=== PATIENT | male | born 1980 | race Caucasian/White ===

== ENCOUNTER → 2019-06-22 10:56 | Outpatient (CLI) | payer OTHER, SELFPAY ==
--- NOTE | ~2019-06-22 | CT_ITS ---
EXAMINATION: CT abdomen pelvis w con EXAM DATE: 06/22/2019 11:25 INDICATION: Unspecified abdominal pain. TECHNIQUE: Spiral CT of the abdomen and pelvis was performed following intravenous injection of 100 m L Omnipaque 350. Axial, coronal and sagittal images were reviewed. The dose-length product (DLP) fo r this examination was 1325.82 mGy-cm. The exposure was tailored according to patient size (auto mA exposure control), and iterative reconstruction (ASIR) was used as additional dose reduction techniqu e. Comparison is made to prior examination from 02/27/2015. FINDINGS: There is hepatic steatosis without suspicious focal lesion identified. Spleen, adrenal glan ds, pancreas are unremarkable. There are cholecystectomy clips. Portal and splenic veins are patent . Kidneys enhance symmetrically. There is no hydronephrosis. The prostate is unremarkable. The b ladder is unremarkable. There is no retroperitoneal or pelvic lymphadenopathy. There are multiple bilateral infraumbilical anterior abdominal wall fat-containing hernias. The appendix is normal. The stomach and small bowel are unremarkable. There is expected amount of c olonic stool. No free intraperitoneal gas. The heart is normal in size. There are no pericardial or pleural effusions. The lung bases are unremarkable. There are no osteoblastic or osteolytic les ions identified. IMPRESSION: 1. Multiple bilateral lower abdominal wall hernias. 2. Hepatic steatosis. Reviewed, dictated and finalized at location A. HOUSE ATTENDANT
== END ==
PROVIDERS: PCP Family Medicine; Visit Provider Nurse Practitioner Family
DX: K76.0 Fatty (change of) liver, not elsewhere classified (principal); K44.9 Diaphragmatic hernia without obstruction or gangrene
CPT/HCPCS: 74177; Q9967

== ENCOUNTER 2020-02-17 10:04 | Outpatient (CLI) | payer OTHER, SELFPAY ==
[2020-02-17 10:40] LABS: Hematocrit 53.9 % (42.0-52.0); Mean Corpuscular HGB Conc 33.4 g/dl (32-36); Mean Corpuscular Hemoglobin 33.6 pg (26-34); Mean Corpuscular Volume 100.7 fl (80-100); Mean Platelet Volume 11.4 fl (7.4-10.4); Platelet Count Result 250 k/mm3 (150-375); Red Blood Count 5.35 M/mm3 (4.6-6.20); Red Cell Distribution Width 13.1 % (11.5-14.5); White Blood Count 8.8 K/mm3 (4.5-10.0)
[2020-02-17 10:55] LABS: Alanine Aminotransferase 52 U/L (4-50); Albumin Level 4.9 g/dL (3.5-5.1); Alkaline Phosphatase 56 U/L (38-126); Amylase 60 U/L (30-110); Anion Gap 11 mmol/L (8-16); Aspartate Amino Transferase 38 U/L (17-59); Bilirubin,Total 2.4 mg/dL (0.2-1.3); Blood Urea Nitrogen 11 mg/dL (9-20); Calcium 9.8 mg/dL (8.4-10.2); Carbon Dioxide 29 mmol/L (22-30); Chloride 103 mmol/L (98-107); Cholesterol 202 mg/dL (0-200); Estimated Glomerular Filt Rate > 60; Glucose 97 mg/dL (75-110); HDL Direct 49 mg/dL; Lipase 144 U/L (23-300); Potassium 4.5 mmol/L (3.4-5.0); Sodium 143 mmol/L (137-145); Triglycerides 173 mg/dL (<150)
[2020-02-17 11:10] LABS: LDL Cholesterol Direct 112 mg/dL
== END 2020-02-17 10:05 | disposition home or self-care (01) ==
PROVIDERS: PCP Family Medicine; Visit Provider Nurse Practitioner Family
DX: R10.9 Unspecified abdominal pain (principal); Z13.29 Encounter for screening for other suspected endocrine disorder; Z12.5 Encounter for screening for malignant neoplasm of prostate
CPT/HCPCS: 36415; 80053; 80061; 82150; 83690; 84443; 85027

== ENCOUNTER 2023-04-12 07:38 | Outpatient (CLI) | payer OTHER, SELFPAY ==
--- NOTE | ~2023-04-12 | MR_ITS ---
EXAMINATION: MR knee LT wo con DATE: 04/12/2023 08:18 INDICATION: anterior left knee pain x1yr, no trauma, skin ca x1yr TECHNIQUE: Magnetic resonance imaging (MRI) of the left knee was performed without intravenous contra st. Sequences included axial PD-weighted FS FSE, coronal PD-weighted FSE and PD-weighted FS FSE, sagi ttal PD-weighted FSE, and sagittal T2-weighted FS FSE. COMPARISON: X-ray left knee 10/14/2022, images only FINDINGS: Medial compartment: Meniscus intact. Mild diffuse cartilage thinning. Lateral compartment: Meniscus intact. Mild diffuse cartilage thinning. Patellofemoral compartment: Retinacula intact. Mild diffuse cartilage thinning. Ligaments and tendons: The ACL, PCL, MCL, and LCL are intact. Remaining flexor and extensor tendons are intact. Fluid: No significant fluid collection. Osseous/other: No suspicious focal or diffuse marrow signal. IMPRESSION: Mild tricompartmental cartilage thinning, otherwise normal MR knee findings. Reviewed, dictated and finalized at location K. UT MAN
== END 2023-04-12 07:39 ==
LOC: MICIMG 07:39
PROVIDERS: PCP Orthopaedic Surgery; Visit Provider Orthopaedic Surgery
DX: M25.562 Pain in left knee (principal)
CPT/HCPCS: 73721

== ENCOUNTER 2023-07-03 12:41 | Outpatient (CLI) | payer OTHER, SELFPAY ==
--- NOTE | ~2023-07-03 | US_ITS ---
EXAMINATION: US right upper quadrant DATE: 07/03/2023 13:55 INDICATION: Unspecified abdominal pain. TECHNIQUE: Multiple grayscale and Doppler ultrasound images of the abdomen were obtained. COMPARISON: CT abdomen and pelvis 06/22/2019 FINDINGS: The visualized portions of the head, body, and tail of the pancreas are normal. There is di ffuse hepatic steatosis. There is normal flow in main portal vein. The gallbladder is absent. The com mon duct is normal and measures 3 mm. IMPRESSION: 1. Diffuse hepatic steatosis. Reviewed, dictated and finalized at location A. R FABRICATOR OPERATOR
--- NOTE | ~2023-07-03 | XR_ITS ---
Clinical Indication: Chest pain PA and lateral views of the chest: Comparison: None Findings: The lungs are clear, without evidence of focal consolidation or pleural effusion. Cardiome diastinal silhouette is within normal limits. Bones and soft tissues are unremarkable. Impression: Normal chest. Reviewed, dictated and finalized at location . TY DEPOSIT CLERK Impression: Normal chest.
== END 2023-07-03 12:42 | disposition home or self-care (01) ==
PROVIDERS: PCP Family Medicine; Visit Provider Physician Assistant
DX: R06.00 Dyspnea, unspecified (principal); R07.89 Other chest pain; E80.6 Other disorders of bilirubin metabolism; R10.9 Unspecified abdominal pain; K76.0 Fatty (change of) liver, not elsewhere classified
CPT/HCPCS: 71046; 76705

== ENCOUNTER 2024-04-15 13:30 | Outpatient (CLI) | payer OTHER, SELFPAY ==
[2024-04-15 14:02] LABS: Basophils Percent Auto 0.5 % (0.2-1.2); Eosinophils Absolute Auto 0.1 K/mm3 (0-0.3); Hematocrit 52.5 % (42.0-52.0); Hemoglobin 17.5 g/dL (14.0-18.0); Immature Granulocyte Absolute 0.07 K/mm3 (0.00-0.031); Lymphocytes Absolute Auto 1.64 K/mm3 (0.9-3.2); Lymphocytes Percent Auto 22.4 % (18.3-44.2); Mean Corpuscular HGB Conc 33.3 g/dl (32-36); Mean Corpuscular Hemoglobin 32.6 pg (26-34); Mean Corpuscular Volume 97.9 fl (80-100); Mean Platelet Volume 11.5 fl (7.4-10.4); Monocytes Absolute Auto 0.6 K/mm3 (0.1-0.6); Monocytes Percent Auto 7.8 % (2.6-8.5); Neutrophils Absolute Auto 4.9 K/mm3 (1.3-6.7); Neutrophils Percent Auto 67.3 % (45.5-73.1); Platelet Count Result 236 k/mm3 (150-375); Red Blood Count 5.36 M/mm3 (4.6-6.20); Red Cell Distribution Width 12.7 % (11.5-14.5); White Blood Count 7.3 K/mm3 (4.5-10.0)
== END 2024-04-15 13:31 | disposition home or self-care (01) ==
PROVIDERS: PCP Family Medicine
DX: R10.9 Unspecified abdominal pain (principal)
CPT/HCPCS: 36415; 80053; 85025

== ENCOUNTER 2024-04-16 09:20 | Outpatient (CLI) | payer OTHER, SELFPAY ==
--- NOTE | ~2024-04-16 | CT_ITS ---
EXAMINATION: CT abdomen pelvis w con DATE: 04/16/2024 09:58 INDICATION: Acute abdominal pain TECHNIQUE: Computed tomography (CT) of the abdomen and pelvis was performed with 100 mL Omnipaque-350 intravenous contrast. Automated exposure control and iterative reconstruction technique were employe d. The dose-length product was 1036.35 mGy-cm. COMPARISON: 06/22/2019 FINDINGS: Unchanged 4 mm right middle lobe nodule consistent with old granulomatous disease. Heart size is norm al. No pericardial or pleural effusion. Cholecystectomy clips the gallbladder fossa. Small region of focal hepatic steatosis along the gallbladder fossa. Spleen, pancreas, bilateral adrenal glands and k idneys are normal. Distal small bowel diverticula without adjacent from trace stranding to suggest di verticulitis. Bowels including the appendix are otherwise normal. Ventral diastases and likely prior ventral hernia repair. Bladder is normal. Small fat-containing left inguinal hernia. No free intraper itoneal gas or fluid. No pathologically enlarged abdominal or pelvic lymphadenopathy. Mild thoracic a nd lumbar spondylosis. Mild to moderate bilateral hip osteoarthritis. IMPRESSION: 1. No acute intra-abdominal/pelvic process. Reviewed, dictated and finalized at location A. E SETTER
[2024-04-16 09:50] LABS: Estimated Glomerular Filt Rate > 60
== END 2024-04-16 09:21 | disposition home or self-care (01) ==
PROVIDERS: PCP Family Medicine
DX: R10.9 Unspecified abdominal pain (principal); M47.894 Other spondylosis, thoracic region; M47.896 Other spondylosis, lumbar region; M16.0 Bilateral primary osteoarthritis of hip
CPT/HCPCS: 74177; Q9967

== ENCOUNTER 2024-07-15 14:12 | Emergency (ER) | payer OTHER, SELFPAY ==
[2024-07-15 14:15] VITALS: BP 120/81; PULSE 96; RESP 16; TEMP 36.5; O2SAT 99
--- OUTSIDE RECORDS SUMMARY | 2024-07-15 16:02 | XMS_ITS | Clinical Summary ---
Author Organization [facility] Address [address] [address] Phone Care Team Providers Care Production Mechanic Tin Cans Name Role Phone Montrell Garcia MD Primary Care Provider [phone] Allergies No known active allergies Medications No known medications Active Problems No known active problems Social History Tobacco Use Types Packs/Day Years Used Date Smoking Tobacco: Never Smokeless Tobacco: Never Tobacco Cessation:Counseling Given: Not Answered Alcohol Use Standard Drinks/Week Comments Not Currently 0 (1 standard drink = 0.6 oz pur e alcohol) Sexually Active Control Partners Comments Not Currently Sex and Gender Information Value Date Recorded Sex Assigned at Not on file Legal Sex Male 7:55 AM LANGUAGE ASST Gender Identity Not on file Sexual Orientation Not on file Last Filed Vital Signs Vital Sign Reading Time Taken Comments Blood Pressure 118/76 02/26/2023 5:42 PM CDT Pulse 75 02/26/2023 5:42 PM CDT Temperature 36.7 C (98.1 F) 02/26/2023 5:42 PM CDT Respiratory Rate 16 02/26/2023 5:42 PM CDT Oxygen Saturation 99% 02/26/2023 5:42 PM CDT Inhaled Oxygen Concentration - - Weight - - Height - - Body Mass Index - - Plan of Treatment Health Maintenance Due Date Last Done Comments Hepatitis C Virus (HCV) Screening 1979 Hepatitis B Immunization (1 of 3 - 19+ 3-dose series) 1998 Influenza Immunization (#1) 2024 SARS-COV-2 Immunization ( season) 2024 03/17/2021, 02/24/2021 Colonoscopy 2024 Colorectal Cancer Screening 2024 Respiratory Syncytial Virus (RSV) Immunization (Adult) (1 - 1-dose 75+ series) 2054 DTaP/Tdap/Td Immunization Discontinued 09/03/2011 TdaP Immunization Completed 09/03/2011 Meningococcal Immunization (ACWY) Aged Out No longer eligible based on patient's age to complete this topic Pneumococcal Immunization Combined Aged Out No longer eligible based on patient's age to complete this topic Rotavirus Immunization Aged Out No lo nger eligible based on patient's age to complete this topic Insurance [facility] Care Teams Production Mechanic Tin Cans Relationship Specialty Start Date End Date Montrell Garcia MD [address] [place], [place] [id number] PCP - General Family Medicine 02/26/23
--- OUTSIDE RECORDS SUMMARY | 2024-07-15 16:02 | XMS_ITS | Encounter Summary ---
Author Organization [facility] Address [address] [place] [address] Care Team Providers Care Tar Distillation Supervisor Name Role Phone Jose Juan Thornton MD Unavailable [phone] Jose Read MD Unavailable Montrell Garcia MD Primary Care Provider [phone] Encounter Details Date Type Department Care Team (Late st Contact Info) Description 07/12/2020 Telephone [facility] [address] [place] [address] Olayinka Razo MD [address] [id number] Social History Tobacco Use Types Packs/Day Years Used Date Smoking Tobacco: Never Smokeless Tobacco: Never Alcohol Use Standard Drinks/Week Comments No 0 (1 standard drink = 0.6 oz pur e alcohol) Sex and Gender Information Value Date Recorded Sex Assigned at Not on file Gender Identity Not on file Sexual Orientation Not on file documented as of this encounter Functional Status Functional Status Response Date of Assess ment Is person deaf or have serious hearing difficult y? No 08/01/2015 Is person blind or have serious difficulty seein g? No 08/01/2015 Does person have serious dif ficulty walking/climbing stairs? No 08/01/2015 Does person have difficulty dressing/bathing? No 08/01/2015 Does person have difficulty doing errands alone? No 08/01/2015 Cognitive Status Response Date of Assessm ent Does person have difficulty concentrating/remembering/making decisions? No 08/01/2015 documented as of this encounter Plan of Treatment Not on file documented as of this encounter Goals Goal Patient Goal Type Associated Problems Recent Progress Patient-Stated? Author Yearly PCP visit Lifestyle No Sheridan Montgomery MA documented as of this encounter Visit Diagnoses Not on filedocumented in this encounter Additional Health Concerns Infection Onset Date Last Indicated Resolved Time COVID-19 Under Investigation 08/18/2020 08/18/2020 08/19/2020 4:19 AM CDT documented as of this encounter Care Teams Tar Distillation Supervisor Relationship Specialty Start Date End Date Montrell Garcia MD [address] [place] [address] PCP - General Family Medicine 08/18/20 Jose Juan Thornton MD [address] [facility] [address] [place] [address] Neurology 08/08/16 Jose Read MD [address] [facility] [address] [place] [address] Rheumatology 09/19/16 documented as of this encounter
--- OUTSIDE RECORDS SUMMARY | 2024-07-15 16:02 | XMS_ITS | Clinical Summary ---
Author Organization [facility] Address [address] [facility] [place] [address] Care Team Providers Care Optical Instrument Repairer Name Role Phone Jose Juan Thornton MD Unavailable [phone] Jose Read MD Unavailable Montrell Garcia MD Primary Care Provider [phone] Source Comments [facility],non-owned Affiliates and Associated Physician Practices is amultiple site organization consisting of ambulatory clinics and hospital sitesin [place], [place], [place] and [place]. This disclosure is being madepursuant to the Care Everywhere program and may not contain all information available regarding this patient. Last updated 18.[facility] Allergies No known active allergies Medications * Be aware that medications may not be up to date on this document. Alwaysverify current medications with the patient. 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 Diabetes mellitus type II, uncontrolled 08/01/19 18 Overview (07/31/2017): Thought to be from course of steroids, diet, weight gain Has not yet started metformin; scared of SE Declines repeat a1c today Assessment & Plan (07/31/2017 9:52 AM CDT): Ok with starting metformin Somatic symptom disorder 06/24/2017 Overview (07/31/2017): Has increased cymbalta to 60mg daily Makes him very tired, but if he takes it before bed, then can't sleep Does feel like overall he's having more good than bad days Has improved diet - cut out soda, fast food; starting to walk more Still c/o tremors in hands, eyelid Ativan helps with that Stiffness in legs better GI issues on/off Assessment & Plan (07/31/2017 9:53 AM CDT): Talked at length about the fluctuating nature of this problem Focus on sleep, exercise, diet Journal sx - will see that the occur and remit spontaneously and this is likely normal for this condition Offered changing Ativan to Buspar though may not help with tremor, just anxiety sx; will hold off on changes for now Metformin may help, tremulousness from high sugars? Avoid alcohol while taking ativa RTC 1 mo Acute right flank pain 09/19/2015 Elevated bilirubin 09/19/[address] 08/01/2015 Overview (08/01/2015): Date: 08/01/2015Friday Pre-op Diagnosis: Perforated doiverticulitis. Post-op Diagnosis: Same. Procedure: Exploratory laparotomy. Lysis of adhesions. Mobilization of splenic flexure. Low anterior anastomosis. Surgeon: Kevin Rosario M.D. Biliary colic 07/04/2015 Diverticulitis of large intestine 04/24/2015 Overview (05/02/2015): Date: 05/02/2015Friday Pre-op Diagnosis: Perforated diverticulitis with complex pelvic abscess.Obesity: Body mass index is 34.08 kg/(m^2). Post-op Diagnosis: Same. Procedure: Exploratory laparotomy. Lysis of adhesions. Drainage of complex pelvic abscess with C & S.Sigmoid colectomy. Yann's procedure. Peritoneal lavage. End sigmoid colostomy. Surgeon: Kevin Rosario M.D. Biliary dyskinesia Resolved Problems Problem Noted Date Diagnosed Date Resolved Date Stress reaction 06/02/2015 08/01/2015 Paroxysmal atrial tachycardia 04/28/2015 08/01/2015 Leukemoid reaction 04/24/2015 6 Abdominal pain, LLQ (left lower quadrant) 04/24/2015 08/01/2015 Immunizations Name Administration Dates Next Due TDAP (7yrs+) 09/03/2011 Family History Medical History Relation Name Comments Cancer - Other Father Negative Family History Other Relation Name Status Comments Father Alive skin cancer-pt does not know type Mother Alive Other Social History Tobacco Use Types Packs/Day Years Used Date Smoking Tobacco: Never Smokeless Tobacco: Never Tobacco Cessation:Counseling Given: No Alcohol Use Standard Drinks/Week Comments No 0 (1 standard drink = 0.6 oz pur e alcohol) Sex and Gender Information Value Date Recorded Sex Assigned at Not on file Gender Identity Not on file Sexual Orientation Not on file Last Filed Vital Signs Vital Sign Reading Time Taken Comments Blood Pressure 134/85 01/17/2021 12:46 PM CDT Pulse 89 01/17/2021 12:46 PM CDT Temperature 36.1 C (97 F) 01/17/2021 12:46 PM CDT Respiratory Rate 18 01/17/2021 12:4 6 PM CDT Oxygen Saturation 100% 01/17/2021 12: 46 PM CDT Inhaled Oxygen Concentration - - Weight 115.8 kg (255 lb 6.4 oz) 021 12:46 PM CDT Height 182.9 cm (6') 01/17/2021 12:46 PM CDT Body Mass Index 34.64 01/17/2021 12:46 PM CDT Plan of Treatment Health Maintenance Due Date Last Done Comments COLOGUARD (AGES 45-75) - COLON CA SCREENING 1979 CT COLONOGRAPHY - COLON CA SCREENING 1979 FIT - COLON CA SCREENING 1979 FLEX SIG - COLON CA SCREENING 1979 HIV SCREENING 1994 HEPATITIS C SCREENING 06/04/1997 HEPATITIS B VACCINE (1 of 3 - 19+ 3-dose series) 1998 PNEUMOCOCCAL VACCINE (1 of 2 - PCV) 1998 DIABETES RETINOPATHY SCREENING 07/31/2017 DIABETES-FOOT EXAM WITH MONOFILAMENT 07/31/2017 DIABETES-HGB A1C 09/21/2017 06/24/2017, 08/20/2016 DIABETES-STATIN 2019 DIABETES-SERUM CREATININE 08/23/20212020, 08/22/2020, 06/24/2017, Additional history exists DTAP/TDAP/TD VACCINES (2 - Td or Tdap) 09/02/2021 09/03/2011 COVID-19 VACCINE ( - 2023- season) 2024 INFLUENZA VACCINE (#1) 2024 DEPRESSION SCREENING 05/05/2024 DIABETES - URINE PROTEIN SCREENING 05/05/2024 COLON MONITORING 06/05/2026 06/05/2016 COLONOSCOPY - COLON CA SCREENING 06/05/2026 06/05/2016 Colorectal Cancer Screening 06/05/2026 ZOSTER VACCINE (1 of 2) 2029 HIB VACCINE Aged Out No longer eligi ble based on patient's age to complete this topic HPV VACCINE Aged Out No longer eligi ble based on patient's age to complete this topic MENINGOCOCCAL (Group B) VACCINE SHARED DECISION-MAKING Aged Out No longer eligible based on patient's age to complete this topic MENINGOCOCCAL GROUPS A/C/Y/W VACCINE Aged Out No longer eligible based on patient's age to complete this topic Goals Goal Patient Goal Type Associated Problems Recent Progress Patient-Stated? Author Yearly PCP visit Lifestyle No Sheridan Montgomery, GIANCARLO Medical Devices Implanted Type Area Investor Relations Associate Device Identifier Shelf Expiration Date Model / Serial / Lot Mesh Srg Bard [id number] Sq Mfl Sft Ltwt Implanted:Qty: 1 on 08/21/2020 by Olayinka Razo MD at [facility] [employer] 04/01/2025 [id number] / / [id number] Explanted Type Area Investor Relations Associate Device Identifier Shelf Expiration Date Model / Serial / Lot Mesh Srg Bard 6x6in Sft Smth Rnd Crnr Lg Explanted:Qty: 1 on 08/21/2020 at [facility] [employer] 09/29/2024 [id number] / / [id number] Procedures Procedure Name Priority Date/Time Associated Diagnosis Comments BASIC METABOLIC PANEL (CALCIUM TOTAL) AM Draw 08/23/2020 2:58 AM CDT Incisional hernia, without obstruction or gangrene HEMOGLOBIN A1C Routine 06/24/2017 9:03 AM MOVING CONSULTANT Diabetes mellitus screening ENDOSCOPY, COLON, DIAGNOSTIC Routine 06/05/2016 from Last 3 Months or Most Recently Relevant to Health Maintenance Results * (ABNORMAL) BASIC METABOLIC PANEL (CALCIUM TOTAL) (08/23/2020 2:58 AM CDT) Glucose 90 70 - 105 mg/dL 08/23/2020 3:52 AM CDT [facility] Sodium 138 136 - 145 mmol/L 08/23/2020 3:52 AM CDT [facility] Potassium 4.1 3.5 - 5.1 mmol/L 08/23/2020 3:52 AM CDT [facility] Chloride 104 98 - 107 mmol/L 08/23/2020 3:52 AM CDT [facility] CO2 27 23 - 31 mmol/L 08/23/2020 3:52 AM CDT [facility] Calcium 8.5 8.4 - 10.4 mg/dL 08/23/2020 3:52 AM CDT [facility] Anion Gap 7(L) 8 - 18 mmol/L 08/23/2020 3:52 AM CDT [facility] Comment:Attention clinician: Reference Range change. BUN 15 8.9 - 20.6 mg/dL 08/23/2020 3:52 AM CDT [facility] Creatinine 0.84 0.72 - 1.25 mg/dL 08/23/2020 3:52 AM CDT [facility] eGFR by MDRD >60 >60 mL/min/1.7 3m2 08/23/2020 3:52 AM CDT [facility] eGFR by MDRD >60 >60 mL/min/1.7 3m2 08/23/2020 3:52 AM CDT [facility] Blood BLOOD SPECIMEN / Unknown Lab Venipuncture / Unknown 08/23/2020 2:58 AM CDT 08/23/2020 3:20 AM CDT Olayinka Razo MD LAB - CHEMISTRY [place] [facility] [address] [place] [id number] * (ABNORMAL) HEMOGLOBIN A1C (06/24/2017 9:03 AM MOVING CONSULTANT) Hemoglobin A1c 9.8(H) 4.2 - 6.3 % [facility] ACCOUNT BILL Comment:AVERAGE GLUCOSE MG/D L BLOOD 235 mg/dL Whole Blood BLOOD SPECIMEN WITH EDTA / Unknown 06/24/2017 9:03 AM MOVING CONSULTANT 06/24/2017 Narrative Resulting Agency Comment [facility] [address] [facility] [phone] Rea Rajan MD LAB - GAS PROVER RY ORDERABLES Performing Organization Address City/[facility]/ZIP Co de Phone Number [facility] ACCOUNT BILL [address] [place] [address] * ENDOSCOPY, COLON, DIAGNOSTIC (06/05/2016) Gordon Dudley MD GI PROCEDURE ORDERA BLES from Last 3 Months or Most Recently Relevant to Health Maintenance Advance Directives * Full Code (Latest Code Status on File) Date Activated Date Inactivated Comments 08/21/2020 6:40 PM 08/23/2020 3:39 PM * Full Code Date Activated Date Inactivated Comments 08/01/2015 12:50 PM 08/04/2015 11:11 PM * Full Code Date Activated Date Inactivated Comments 05/02/2015 7:39 PM 05/08/2015 12:44 PM * Full Code Date Activated Date Inactivated Comments 04/24/2015 6:50 PM 05/02/2015 7:39 PM Care Teams Optical Instrument Repairer Relationship Specialty Start Date End Date Montrell Garcia MD [address] [place] [phone] PCP - General Family Medicine 08/18/20 Jose Juan Thornton MD [address] [place] [address] Neurology 08/08/16 Jose Read MD [address] [place] [address] Rheumatology 09/19/16
--- OUTSIDE RECORDS SUMMARY | 2024-07-15 16:02 | XMS_ITS | Referral Summary ---
Author Organization [facility] Address [address] [place] [address] Care Team Providers Care Technical Publications Writer Name Role Phone Jose Juan Thornton MD Unavailable [phone] Jose Read MD Unavailable Montrell Garcia MD Primary Care Provider [phone] Source Comments [facility],non-owned Affiliates and Associated Physician Practices is amultiple site organization consisting of ambulatory clinics and hospital sitesin [place], [place], [place] and [place]. This disclosure is being madepursuant to the Care Everywhere program and may not contain all information available regarding this patient. Last updated 18.[facility] Allergies No known active allergies Medications * [...] Administration Dates Next Due TDAP (7yrs+) 09/03/2011 Social History Tobacco Use Types Packs/Day Years [...] Mass Index 34.64 01/17/2021 12:46 PM CDT Functional Status Functional Status Response Date of Assess ment Is person deaf or have serious hearing difficult y? No 08/21/2020 Is person blind or have serious difficulty seein g? No 08/21/2020 Does person have serious dif ficulty walking/climbing stairs? No 08/21/2020 Does person have difficulty dressing/bathing? No 08/21/2020 Does person have difficulty doing errands alone? No 08/21/2020 Cognitive Status Response Date of Assessm ent Does person have difficulty concentrating/remembering/making decisions? No 08/21/2020 Plan of Treatment Not on file Goals Goal Patient Goal Type Associated Problems Recent Progress Patient-Stated? Author Yearly PCP visit Lifestyle No Sheridan Montgomery MA Medical Devices Implanted Type Area Accounts Payable Professional Device Identifier Shelf Expiration Date Model / Serial / Lot Mesh Srg Bard [id number] Sq Mfl Sft Ltwt Implanted:Qty: 1 on 08/21/2020 by Olayinka Razo MD at [facility] [employer] 04/01/2025 [id number] / / [id number] Explanted Type Area Accounts Payable Professional Device Identifier Shelf Expiration Date Model / Serial / Lot Mesh Srg Bard 6x6in Sft Smth Rnd Crnr Lg Explanted:Qty: 1 on 08/21/2020 at [facility] [employer] 09/29/2024 [id number] / / [id number] Procedures Procedure Name Priority Date/Time Associated Diagnosis Comments BASIC METABOLIC PANEL (CALCIUM TOTAL) AM Draw 08/23/2020 2:58 AM CDT Incisional hernia, without obstruction or gangrene HEMOGLOBIN A1C Routine 06/24/2017 9:03 AM JURY CONSULTANT Diabetes mellitus screening ENDOSCOPY, COLON, DIAGNOSTIC [...] - 31 mmol/L 08/23/2020 3:52 AM CDT [facility] Calcium 8.5 8.4 - 10.4 mg/dL 08/23/2020 3:52 AM CDT [facility] Anion Gap 7(L) 8 - 18 mmol/L 08/23/2020 3:52 AM CDT [facility] Comment:Attention clinician: Reference Range change. BUN 15 8.9 - 20.6 mg/dL 08/23/2020 3:52 AM CDT [facility] Creatinine 0.84 0.72 - 1.25 mg/dL 08/23/2020 3:52 AM CDT [facility] eGFR by MDRD >60 >60 mL/min/1.7 3m2 08/23/2020 3:52 AM CDT [facility] eGFR by MDRD >60 >60 mL/min/1.7 3m2 08/23/2020 3:52 AM CDT [facility] Blood BLOOD SPECIMEN / Unknown Lab Venipuncture / Unknown 08/23/2020 2:58 AM CDT 08/23/2020 3:20 AM CDT Olayinka Razo MD LAB - CHEMISTRY ORDMina GORDILLO [facility] [address] [place] [id number] * (ABNORMAL) HEMOGLOBIN A1C (06/24/2017 9:03 AM JURY CONSULTANT) Hemoglobin A1c 9.8(H) 4.2 - 6.3 % [facility] ACCOUNT BILL Comment:AVERAGE GLUCOSE MG/D L BLOOD 235 mg/dL Whole Blood BLOOD SPECIMEN WITH EDTA / Unknown 06/24/2017 9:03 AM JURY CONSULTANT 06/24/2017 Narrative Resulting Agency Comment [facility] [address] [facility] [phone] Rea Rajan MD LAB - TETRYL WRINGER OPERATOR RY ORDERABLES [facility] ACCOUNT BILL [address] [place] [address] * ENDOSCOPY, COLON, DIAGNOSTIC (06/05/2016) Gordon Dudley [...] 6:50 PM 05/02/2015 7:39 PM Care Teams Technical Publications Writer Relationship Specialty Start Date End Date Montrell Garcia MD [address] [place] [address] PCP - General Family Medicine 08/18/20 Jose Juan Thornton MD [address] [place] [address] Neurology 08/08/16 Jose Read MD [address] [place] [address] Rheumatology 09/19/16
--- OUTSIDE RECORDS SUMMARY | 2024-07-15 16:02 | XMS_ITS | Patient Health Summary ---
Author Organization [facility] Address [address] [place] [address] Care Team Providers Care Cycling Instructor Name Role Phone Jose Juan Thornton MD Unavailable [phone] Jose Read MD Unavailable Montrell Garcia MD Primary Care Provider [phone] Note from [facility],non-owned Affiliates and Associated Physician Practices is amultiple site organization consisting of ambulatory clinics and hospital sitesin [place], [place], [place] and [place]. This disclosure is being madepursuant to the Care Everywhere program and may not contain all information available regarding this patient. Last updated 18.[facility] Allergies No known active allergies Medications * Be aware that medications may not be up to date on this document. Alwaysverify current medications with the patient. * multivitamin daily (THERAGRAN) tablet Take 1 Tab by mouth daily with food Reported on 06/20/2016 * ALPRAZolam (XANAX) 0.25 MG tablet(Started 02/18/2019) Take 0.25 mg by mouth 3 times daily * JANUMET 50-500 MG tablet(Started 09/06/2019) 2 times daily * empagliflozin (JARDIANCE) 25 MG tablet Take 25 mg by mouth once daily Active Problems Problem Noted Date Diagnosed Date Incisional hernia, without obstruction or gangre ne 08/21/2020 Short bowel syndrome 12/04/2017 Diabetes mellitus type II, uncontrolled 08/01/19 18 Somatic symptom disorder 06/24/2017 Acute right flank pain 09/19/2015 Elevated bilirubin 09/19/[address] 08/01/2015 Biliary colic 07/04/2015 Diverticulitis of large intestine 04/24/2015 Biliary dyskinesia Resolved Problems Problem Noted Date Diagnosed Date Resolved Date Stress reaction 06/02/2015 08/01/2015 Paroxysmal atrial tachycardia 04/28/2015 08/01/2015 Leukemoid reaction 04/24/2015 6 Abdominal pain, LLQ (left lower quadrant) 04/24/2015 08/01/2015 Immunizations * TDAP (7yrs+)(Given 09/03/2011) Social History Tobacco Use Types Packs/Day Years [...] Mass Index 34.64 01/17/2021 12:46 PM CDT Medical Devices Implanted Type Area Implementation Services Analyst Device Identifier Shelf Expiration Date Model / Serial / Lot Mesh Srg Bard [id number] Sq Mfl Sft Ltwt Implanted:Qty: 1 on 08/21/2020 by Olayinka Razo MD at [facility] Abdomen [employer] 04/01/2025 [id number] / / [id number] Explanted Type Area Implementation Services Analyst Device Identifier Shelf Expiration Date Model / Serial / Lot Mesh Srg Bard 6x6in Sft Smth Rnrosalio Hoffman Lg Explanted:Qty: 1 on 08/21/2020 at [facility] Abdomen [employer] 09/29/2024 [id number] / / [id number] Procedures * DERMATOPATHOLOGY(Performed 04/24/2022) Performed for Neoplasm of uncertain behavior of skin * CARDIAC RHYTHM STRIP ORDER(Performed 08/25/2020) * GLUCOSE - POINT OF CARE(Performed 08/23/2020) * PHOSPHORUS BLOOD(Performed 08/23/2020) Performed for Incisional hernia, without obstruction or gangrene * MAGNESIUM BLOOD(Performed 08/23/2020) Performed for Incisional hernia, without obstruction or gangrene * BASIC METABOLIC PANEL (CALCIUM TOTAL)(Performed 08/23/2020) Performed for Incisional hernia, without obstruction or gangrene * CBC W/O DIFFERENTIAL(Performed 08/23/2020) Performed for Incisional hernia, without obstruction or gangrene * GLUCOSE - POINT OF CARE(Performed 08/22/2020) * GLUCOSE - POINT OF CARE(Performed 08/22/2020) * GLUCOSE - POINT OF CARE(Performed 08/22/2020) * GLUCOSE - POINT OF CARE(Performed 08/22/2020) * PHOSPHORUS BLOOD(Performed 08/22/2020) Performed for Incisional hernia, without obstruction or gangrene * MAGNESIUM BLOOD(Performed 08/22/2020) Performed for Incisional hernia, without obstruction or gangrene * BASIC METABOLIC PANEL (CALCIUM TOTAL)(Performed 08/22/2020) Performed for Incisional hernia, without obstruction or gangrene * CBC W/O DIFFERENTIAL(Performed 08/22/2020) Performed for Incisional hernia, without obstruction or gangrene * GLUCOSE - POINT OF CARE(Performed 08/21/2020) * ENDOTRACHEAL TUBE NOTE(Performed 08/21/2020) * PATHOLOGY TISSUE EXAM (STL)(Performed 08/21/2020) Performed for Diagnosis unknown * REPAIR VENTRAL/INCISIONAL HERNIA WITH COMPONENT SEPARATION(Performed 08/21/2020) Performed for Diagnosis unknown * GLUCOSE - POINT OF CARE(Performed 08/21/2020) * SARS-COV-2 (COVID-19) IN HOUSE(Performed 08/18/2020) Performed for Incisional hernia, without obstruction or gangrene * LIPID PROFILE(Performed 06/24/2017) Performed for Lipid screening * COMPREHENSIVE METABOLIC PANEL(Performed 06/24/2017) Performed for Lipid screening * HEMOGLOBIN A1C(Performed 06/24/2017) Performed for Diabetes mellitus screening * LYME DISEASE AB IGG WB(Performed 02/17/2017) Performed for Polymyositis (HCC), HyperCKemia, Bilateral carpal tunnel syndrome, Myositis associated antibody positive (HCC), Medication monitoring encounter * GROSS EXAM PATHOLOGY (STL)(Performed 12/25/2016) Performed for 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) * PATHOLOGY/CYTOLOGY REPORT ORDER(Performed 12/25/2016) * AMB REFERRAL TO GENERAL SURGERY(Performed 12/10/2016) Performed for Myositis associated antibody positive (HCC) * ALDOLASE(Performed 12/03/2016) Performed for Myositis of multiple sites, unspecified myositis type * RPR(Performed 09/23/2016) Performed for Muscle pain * CK BLOOD(Performed 09/23/2016) Performed for Muscle pain * ERYTHROCYTE SEDIMENTATION RATE(Performed 09/23/2016) Performed for Muscle pain * C-REACTIVE PROTEIN(Performed 09/23/2016) Performed for Muscle pain * ANCA VASCULITIS PANEL(Performed 09/23/2016) Performed for Muscle pain * IMMUNOFIXATION BLOOD(Performed 09/23/2016) Performed for Muscle pain * PROTEIN ELECTROPHORESIS BLOOD(Performed 09/23/2016) Performed for Muscle pain * LYME DISEASE AB IGM + TOTAL RFLX LINE BLOT(Performed 09/23/2016) Performed for Muscle pain * ALDOLASE(Performed 09/23/2016) Performed for Muscle pain * MYOSITIS ANTIBODY PANEL COMPREHENSIVE(Performed 09/23/2016) Performed for Muscle pain * MRI BRAIN WWO CONTRAST(Performed 08/27/2016) Performed for Paresthesia of both hands, Paresthesia of both feet, Visual disturbance * EMG(Performed 08/20/2016) Performed for Paresthesia of both hands, Paresthesia of both feet * HEMOGLOBIN A1C(Performed 08/20/2016) Performed for Paresthesia of both hands * VITAMIN B6(Performed 08/20/2016) Performed for Paresthesia of both hands * METHYLMALONIC ACID BLOOD(Performed 08/20/2016) Performed for Paresthesia of both hands, Paresthesia of both feet, Photosensitivity * CULTURE URINE(Performed 07/09/2016) Performed for Frequent urination * PROSTATE SPECIFIC ANTIGEN SCREEN(Performed 07/09/2016) Performed for Frequent urination * URINALYSIS AUTO - POINT OF CARE (AMB) STL(Performed 07/09/2016) Performed for Frequent urination * DEONTE BLOOD SCREEN W/REFLEX TITER(Performed 07/02/2016) Performed for Pain in or around eye, bilateral * C-REACTIVE PROTEIN(Performed 07/02/2016) Performed for Pain in or around eye, bilateral * ERYTHROCYTE SEDIMENTATION RATE(Performed 07/02/2016) Performed for Pain in or around eye, bilateral * FOLATE(Performed 07/02/2016) Performed for Numbness and tingling * VITAMIN B12(Performed 07/02/2016) Performed for Numbness and tingling * CBC W AUTO DIFFERENTIAL(Performed 07/02/2016) Performed for Numbness and tingling * METANEPHRINES URINE FRACTIONATED(Performed 06/27/2016) Performed for Flushing * HYDROXYINDOLACETIC ACID 5 URINE TIMED(Performed 06/27/2016) Performed for Flushing * CBC W AUTO DIFFERENTIAL W PLATELETS(Performed 06/27/2016) * CBC W AUTO DIFFERENTIAL(Performed 06/20/2016) Performed for Malaise and fatigue * THYROID CASCADE PROFILE(Performed 06/20/2016) Performed for Flushing * MONONUCLEOSIS SCREEN(Performed 06/20/2016) Performed for Malaise and fatigue * AMYLASE BLOOD(Performed 06/20/2016) Performed for Right upper quadrant abdominal pain * LIPASE BLOOD(Performed 06/20/2016) Performed for Right upper quadrant abdominal pain * COMPREHENSIVE METABOLIC PANEL(Performed 06/20/2016) Performed for Malaise and fatigue * INFLUENZA A+B - POINT OF CARE (AMB)(Performed 06/20/2016) Performed for Malaise and fatigue * ENDOSCOPY, COLON, DIAGNOSTIC(Performed 06/05/2016) * ENDOSCOPY, UPPER(Performed 06/05/2016) * MONONUCLEOSIS SCREEN(Performed 03/19/2016) Performed for Fever, unspecified fever cause * CBC W AUTO DIFFERENTIAL(Performed 03/19/2016) Performed for Fever, unspecified fever cause * COMPREHENSIVE METABOLIC PANEL(Performed 03/19/2016) Performed for Fever, unspecified fever cause * STREP A SCREEN - POINT OF CARE (AMB) STL(Performed 03/19/2016) Performed for Fever, unspecified fever cause * CT ABDOMEN PELVIS W CONTRAST(Performed 02/17/2016) Performed for History of diverticulitis, Bloating, Diarrhea, unspecified type * URINALYSIS - POINT OF CARE(Performed 02/15/2016) Performed for Pelvic pain in male * LIPASE BLOOD(Performed 02/13/2016) Performed for Right upper quadrant abdominal pain * COMPREHENSIVE METABOLIC PANEL(Performed 02/13/2016) Performed for Right upper quadrant abdominal pain * CBC W AUTO DIFFERENTIAL(Performed 02/13/2016) Performed for Right upper quadrant abdominal pain * CARDIAC RHYTHM STRIP ORDER(Performed 12/12/2015) * PATHOLOGY TISSUE EXAM (STL)(Performed 12/08/2015) Performed for Biliary dyskinesia * LAPAROSCOPIC CHOLECYSTECTOMY(Performed 12/08/2015) Performed for Biliary dyskinesia * NM HEPATOBILIARY W EF(Performed 10/10/2015) Performed for Acute right flank pain, Elevated bilirubin * BILIRUBIN TOTAL+DIRECT BLOOD PANEL(Performed 09/19/2015) Performed for Elevated bilirubin * URINALYSIS AUTO - POINT OF CARE (AMB) STL(Performed 09/19/2015) Performed for Urinary frequency * PATHOLOGY PERIPHERAL SMEAR REVIEW(Performed 09/07/2015) Performed for Elevated bilirubin * LDH BLOOD(Performed 09/07/2015) Performed for Elevated bilirubin * PT-INR(Performed 09/07/2015) Performed for Elevated bilirubin * HAPTOGLOBIN(Performed 09/07/2015) Performed for Elevated bilirubin * BILIRUBIN TOTAL+DIRECT BLOOD PANEL(Performed 09/07/2015) Performed for Elevated bilirubin * URINALYSIS AUTO - POINT OF CARE (AMB) STL(Performed 09/07/2015) Performed for Flank pain * LIPASE BLOOD(Performed 09/06/2015) * CBC W AUTO DIFFERENTIAL(Performed 09/06/2015) * URINALYSIS REFLEX MICROSCOPIC REFLEX CULTURE(Performed 09/06/2015) * COMPREHENSIVE METABOLIC PANEL(Performed 09/06/2015) * CARDIAC RHYTHM STRIP ORDER(Performed 08/06/2015) * GLUCOSE - POINT OF CARE(Performed 08/04/2015) * GLUCOSE - POINT OF CARE(Performed 08/04/2015) * GLUCOSE - POINT OF CARE(Performed 08/04/2015) * CBC W AUTO DIFFERENTIAL(Performed 08/04/2015) * GLUCOSE - POINT OF CARE(Performed 08/03/2015) * BASIC METABOLIC PANEL (CALCIUM TOTAL)(Performed 08/03/2015) * CBC W AUTO DIFFERENTIAL(Performed 08/03/2015) * MAGNESIUM BLOOD(Performed 08/02/2015) * BASIC METABOLIC PANEL (CALCIUM TOTAL)(Performed 08/02/2015) * CBC W AUTO DIFFERENTIAL(Performed 08/02/2015) * OXYGEN(Performed 08/01/2015) * PATHOLOGY TISSUE EXAM (STL)(Performed 08/01/2015) Performed for Diverticulitis of colon with perforation * NEURAXIAL BLOCK(Performed 08/01/2015) * CLOSURE/REVERSAL ENTEROSTOMY/COLOSTOMY(Performed 08/01/2015) Performed for Diverticulitis of colon with perforation * LAPAROTOMY EXPLORATORY(Performed 08/01/2015) Performed for Diverticulitis of colon with perforation * COMPREHENSIVE METABOLIC PANEL(Performed 08/01/2015) * CBC W AUTO DIFFERENTIAL(Performed 08/01/2015) * US ABDOMEN LIMITED(Performed 07/25/2015) Performed for Biliary colic * FL LOWER GI WATER SOLUBLE(Performed 07/11/2015) Performed for Diverticulitis of colon with perforation * CARDIAC RHYTHM STRIP ORDER(Performed 05/10/2015) * CBC W AUTO DIFFERENTIAL(Performed 05/06/2015) * MAGNESIUM BLOOD(Performed 05/06/2015) * PHOSPHORUS BLOOD(Performed 05/06/2015) * COMPREHENSIVE METABOLIC PANEL(Performed 05/06/2015) * GLUCOSE - POINT OF CARE(Performed 05/06/2015) * GLUCOSE - POINT OF CARE(Performed 05/06/2015) * GLUCOSE - POINT OF CARE(Performed 05/05/2015) * GLUCOSE - POINT OF CARE(Performed 05/05/2015) * BASIC METABOLIC PANEL (CALCIUM TOTAL)(Performed 05/05/2015) * CBC W AUTO DIFFERENTIAL(Performed 05/05/2015) * GLUCOSE - POINT OF CARE(Performed 05/04/2015) * GLUCOSE - POINT OF CARE(Performed 05/04/2015) * GLUCOSE - POINT OF CARE(Performed 05/04/2015) * GLUCOSE - POINT OF CARE(Performed 05/04/2015) * GLUCOSE - POINT OF CARE(Performed 05/03/2015) * GLUCOSE - POINT OF CARE(Performed 05/03/2015) * GLUCOSE - POINT OF CARE(Performed 05/03/2015) * GLUCOSE - POINT OF CARE(Performed 05/03/2015) * PT EVAL AND TREAT(Performed 05/03/2015) * GLUCOSE - POINT OF CARE(Performed 05/03/2015) * MAGNESIUM BLOOD(Performed 05/03/2015) * BASIC METABOLIC PANEL (CALCIUM TOTAL)(Performed 05/03/2015) * CBC W AUTO DIFFERENTIAL(Performed 05/03/2015) * GLUCOSE - POINT OF CARE(Performed 05/02/2015) * GLUCOSE - POINT OF CARE(Performed 05/02/2015) * CULTURE ABSCESS+GRAM STAIN(Performed 05/02/2015) Performed for Diverticulitis of large intestine with abscess without bleeding * PATHOLOGY TISSUE EXAM (STL)(Performed 05/02/2015) Performed for Diverticulitis of large intestine with abscess without bleeding * URINALYSIS REFLEX MICROSCOPIC REFLEX CULTURE(Performed 05/02/2015) Performed for Diverticulitis of large intestine with abscess without bleeding * COLOSTOMY(Performed 05/02/2015) * COLECTOMY SIGMOID(Performed 05/02/2015) * LAPAROTOMY EXPLORATORY(Performed 05/02/2015) * PT PTT PANEL(Performed 05/02/2015) * PHOSPHORUS BLOOD(Performed 05/02/2015) * MAGNESIUM BLOOD(Performed 05/02/2015) * COMPREHENSIVE METABOLIC PANEL(Performed 05/02/2015) * CBC W AUTO DIFFERENTIAL(Performed 05/02/2015) * CT ABDOMEN PELVIS W CONTRAST(Performed 05/01/2015) Performed for RLQ abdominal pain, Acute diverticulitis, Perforated bowel (HCC), Acute diverticulitis of intestine, Paroxysmal atrial tachycardia, Leukemoid reaction, Abdominal pain, LLQ (left lower quadrant), Puerperal pelvic abscess (HCC) * CBC W AUTO DIFFERENTIAL(Performed 05/01/2015) * COMPREHENSIVE METABOLIC PANEL(Performed 04/30/2015) * CBC W AUTO DIFFERENTIAL(Performed 04/30/2015) * CT DRAIN PERITON RETRO W CATH(Performed 04/29/2015) Performed for Puerperal pelvic abscess (HCC) * CULTURE WOUND+GRAM STAIN(Performed 04/29/2015) * CT DRAIN PERITON RETRO W CATH(Performed 04/29/2015) Performed for Acute diverticulitis of intestine * CULTURE WOUND+GRAM STAIN(Performed 04/29/2015) * CT ABDOMEN PELVIS W CONTRAST(Performed 04/29/2015) Performed for RLQ abdominal pain, Acute diverticulitis, Perforated bowel (HCC), Acute diverticulitis of intestine, Paroxysmal atrial tachycardia, Leukemoid reaction, Abdominal pain, LLQ (left lower quadrant) * C DIFFICILE GDH AG + TOXIN A+B(Performed 04/29/2015) * BASIC METABOLIC PANEL (CALCIUM TOTAL)(Performed 04/29/2015) * CBC W AUTO DIFFERENTIAL(Performed 04/29/2015) * URINALYSIS REFLEX MICROSCOPIC REFLEX CULTURE(Performed 04/28/2015) * CULTURE URINE(Performed 04/28/2015) * EKG 12-LEAD(Performed 04/28/2015) Performed for Paroxysmal atrial tachycardia * BASIC METABOLIC PANEL (CALCIUM TOTAL)(Performed 04/28/2015) * CBC W AUTO DIFFERENTIAL(Performed 04/28/2015) * URINALYSIS REFLEX TO MICROSCOPIC NO CULTURE(Performed 04/27/2015) * BASIC METABOLIC PANEL (CALCIUM TOTAL)(Performed 04/27/2015) * CBC W AUTO DIFFERENTIAL(Performed 04/27/2015) * DIFFERENTIAL MANUAL(Performed 04/26/2015) * PHOSPHORUS BLOOD(Performed 04/26/2015) * MAGNESIUM BLOOD(Performed 04/26/2015) * BASIC METABOLIC PANEL (CALCIUM TOTAL)(Performed 04/26/2015) * CBC W AUTO DIFFERENTIAL(Performed 04/26/2015) * CBC W AUTO DIFFERENTIAL(Performed 04/25/2015) * BASIC METABOLIC PANEL (CALCIUM TOTAL)(Performed 04/25/2015) * CULTURE BLOOD(Performed 04/24/2015) * CULTURE BLOOD(Performed 04/24/2015) * URINALYSIS REFLEX MICROSCOPIC REFLEX CULTURE(Performed 04/24/2015) * CT ABDOMEN PELVIS W CONTRAST(Performed 04/24/2015) Performed for RLQ abdominal pain * LIPASE BLOOD(Performed 04/24/2015) * COMPREHENSIVE METABOLIC PANEL(Performed 04/24/2015) * CBC W AUTO DIFFERENTIAL(Performed 04/24/2015) Results * DERMATOPATHOLOGY (04/24/2022 12:00 AM PRODUCT DEVELOPMENT COORDINATOR) Case Report Dermatopathology Report Case: [id number] Authorizing Provider: Dejah Domingo, Collected: 04/24/2022 12:00 AM COMPUTER TECHNOLOGY INSTRUCTOR-MAXILLOFACIAL PATHOLOGY Ordering Location: [facility] DermPath Lab Received: 04/30/2022 12:41 PM Pathologist: Neyda Chu MD Specimen: Skin, Right Scalp 2 12:13 PM PRODUCT DEVELOPMENT COORDINATOR DERMATOPATHOLOGY LABORATORY Final Diagnosis Specimen A. SKIN, Right Scalp: BASAL CELL CARCINOMA, NODULAR TYPE (C44.41) 2 12:13 PM [facility] DERMATOPATHOLOGY LABORATORY Clinical History BCC 2 12:13 PM [facility] DERMATOPATHOLOGY LABORATORY Gross Description Specimen A: Received is one formalin filled container labeled with the patient's name and designated Right Scalp. The specimen consists of a shave biopsy measuring 8x7x1 mm. Jar 0. 2 12:13 PM [facility] DERMATOPATHOLOGY LABORATORY Microscopic Description Specimen A. SKIN, Right Scalp: Within the dermis there are aggregates of basaloid cells with a high nuclear to cytoplasmic ratio and peripheral palisading. 2 12:13 PM [facility] DERMATOPATHOLOGY LABORATORY Disclaimer An external and internal positive and negative controls are appropriate for the histochemical, immunohistochemical and immunofluorescence stain(s) in this case (if any), except where stated explicitly. The performance characteristics of the stain(s) cited in this report were developed and its performance characteristic determined by the Dermatopathology Laboratory at [facility], directed by Dr. Carlos Maurice. These tests need not be, and therefore are not, approved by the [place] Food and Drug Administration. The tests are used for clinical purposes. Billing Codes Specimen Charges Stain Charges 30504 1 2 12:13 PM [facility] DERMATOPATHOLOGY LABORATORY Embedded Images 2 12:13 PM [facility] DERMATOPATHOLOGY LABORATORY Pathology/Cytolog y TISSUE SPECIMEN FROM SKIN / Unknown 04/24/2022 04/30/2022 12:41 PM PRODUCT DEVELOPMENT COORDINATOR Dejah Sanchez COMPUTER TECHNOLOGY INSTRUCTOR-MAXILLOFACIAL PATHOLOGY LAB - PATH OLOGY/CYTOLOGY ORDERABLES DERMATOPATHOLOGY LABORATORY [facility] - Department of Dermatology [address], [address] [phone] * CARDIAC RHYTHM STRIP ORDER (08/25/2020 10:27 AM CDT) Only the most recent of4 resultswithin the time period is included. Narrative 08/25/2020 10:27 AM CDT Ordered by an unspecified provider. Scanned Document CARDIAC SERVICES ORD ERABLES * GLUCOSE - POINT OF CARE (08/23/2020 7:49 AM CDT) Only the most recent of26 resultswithin the time period is included. Pathologist [facility] Glucose WB/POC 97 70 - 106 mg/dL 08/23/2020 8:51 PM CDT [facility] Specimen Type Arterial/C apillary 08/23/2020 8:51 PM CDT [facility] Blood BLOOD SPECIMEN / Unknown 08/23/2020 7:49 AM CDT 08/23/2020 8:51 PM CDT Olayinka Razo MD LAB - POINT OF CARE ORDERABLES [facility] [address] [place] [address] * (ABNORMAL) CBC W/O DIFFERENTIAL (08/23/2020 2:58 AM CDT) Only the most recent of2 resultswithin the time period is included. [facility] WBC 9.6 4.4 - 10.7 x10E9/L 08/23/2020 3:38 AM CDT [facility] RBC 4.78 3.80 - 5.40 x10E12/L 08/23/2020 3:38 AM CDT [facility] Hemoglobin 15.7 12.0 - 17.6 gm/dL 08/23/2020 3:38 AM CDT [facility] Hematocrit 47.4 35.2 - 51.7 % 08/23/2020 3:38 AM [facility] MCV 99.2(H) 80.7 - 98.3 fl 08/23/2020 3:38 AM CDT [facility] MCH 32.8 26.7 - 34.0 pg 08/23/2020 3:38 AM CDT [facility] MCHC 33.1 30.8 - 35.9 gm/dL 08/23/2020 3:38 AM CDT [facility] Platelet Count 226 153 - 416 x10E9/L 08/23/2020 3:38 AM CDT [facility] RDW-CV 12.8 12.1 - 14.9 % 08/23/2020 3:38 AM CDT [facility] MPV 11.3 9.4 - 12.9 fl 08/23/2020 3:38 AM CDT [facility] Blood BLOOD SPECIMEN / Unknown Lab Venipuncture / Unknown 08/23/2020 2:58 AM CDT 08/23/2020 3:20 AM CDT Olayinka Razo MD LAB - HEMATOLOGY ORD ERABLES [facility] [address] [place] [address] * (ABNORMAL) BASIC METABOLIC PANEL (CALCIUM TOTAL) (08/23/2020 2:58 AM CDT) Only the most recent of11 resultswithin the time period is included. [facility] Glucose 90 70 - 105 mg/dL 08/23/2020 3:52 AM CDT [facility] Sodium 138 136 - 145 mmol/L 08/23/2020 3:52 AM CDT [facility] Potassium 4.1 3.5 - 5.1 mmol/L 08/23/2020 3:52 AM CDT [facility] Chloride 104 98 - 107 mmol/L 08/23/2020 3:52 AM CDT [facility] CO2 27 23 - 31 mmol/L 08/23/2020 3:52 AM CDT [facility] Calcium 8.5 8.4 - 10.4 mg/dL 08/23/2020 3:52 AM CDT [facility] Anion Gap 7(L) 8 - 18 mmol/L 08/23/2020 3:52 AM CDT [facility] Comment:Attention clinician: Reference Range change. BUN 15 8.9 - 20.6 mg/dL 08/23/2020 3:52 AM CDT [facility] Creatinine 0.84 0.72 - 1.25 mg/dL 08/23/2020 3:52 AM CDT [facility] eGFR by MDRD >60 >60 mL/min/1.7 3m2 08/23/2020 3:52 AM CDT [facility] eGFR by MDRD >60 >60 mL/min/1.7 3m2 08/23/2020 3:52 AM CDT [facility] Blood BLOOD SPECIMEN / Unknown Lab Venipuncture / Unknown 08/23/2020 2:58 AM CDT 08/23/2020 3:20 AM CDT Olayinka Razo MD LAB - CHEMISTRY LISA GORDILLO Performing Organization Address [facility] Co de Phone Number [facility] [address] [place] [phone] * PHOSPHORUS BLOOD (08/23/2020 2:58 AM CDT) Only the most recent of5 resultswithin the time period is included. Phosphorus 2.8 2.3 - 4.7 mg/dL 08/23/2020 3:52 AM CDT [facility] Blood BLOOD SPECIMEN / Unknown Lab Venipuncture / Unknown 08/23/2020 2:58 AM CDT 08/23/2020 3:20 AM CDT Olayinka Razo MD LAB - CHEMISTRY LISA GORDILLO Performing Organization Address [facility] de Phone Number [facility] [address] [place] [phone] * MAGNESIUM BLOOD (08/23/2020 2:58 AM CDT) Only the most recent of7 resultswithin the time period is included. Magnesium 2.0 1.6 - 2.6 mg/dL 08/23/2020 3:52 AM CDT [facility] Blood BLOOD SPECIMEN / Unknown Lab Venipuncture / Unknown 08/23/2020 2:58 AM CDT 08/23/2020 3:20 AM CDT Olayinka Razo MD LAB - CHEMISTRY LISA GORDILLO Performing Organization Address [facility] Co de Phone Number [facility] [address] [place] [address] [phone] * ETT LINE PERFORMABLE (08/21/2020 2:28 PM CDT) Narrative Kiersten Coley APRN-TRACK GREASER - 08/21/2020 2:28 PM CDT Kiersten Coley APRN-TRACK GREASER 08/21/2020 2:28 PM Endotracheal Tube Placement: Patient Location: OR. Intubation Event Date/Time: 08/21/2020 1:16 PM Procedure: intubation (44460). Procedure Section: Sedation: under general anesthesia. Indications for Airway Management: anesthesia Induction: modified rapid sequence Patient Position: supine and sniffing Mask Ventilation: not attempted. Blade Type: Elvira Blade Size: 4 Laryngoscopy View: grade 1 (full cords) Intubation Adjuncts: stylet Tube: endotracheal tube Placement: oral Tube type: cuff - inflated Tube Size (MM): 8 Depth of Insertion (CM): 23 Measured From: lips Cuff volume (mL): 8 Cuff Inflated With: air Number of Attempts: 1. Placement Verified By: direct visualization, bilateral breath sounds, chest auscultation and CO2 monitor CXR Findings: ETT in proper place. Tube secured with: adhesive tape. Difficult Airway? No. Procedure Start Time: 08/21/2020 1:16 PM. Staff Section Anesthesia Provider: Kiersten Coley APRN-CRNA, Performed the procedure Paul Bang MD GENERAL ANESTHESIA O RDERABLES * PATHOLOGY TISSUE EXAM (STL) (08/21/2020 1:46 PM CDT) Only the most recent of4 resultswithin the time period is included. Case Report Surgical Pathology Report Case: [id number] Authorizing Provider: Olayinka Razo MD Collected: 08/21/2020 01:46 PM Ordering Location: [facility] Received: 08/21/2020 03:50 PM Pathologist: Kvng Garcia MD Specimen: Tissue, Abdominal wall skin 08/22/2020 11:47 AM CDT [facility] Final Diagnosis Skin, abdominal wall, excision: Dermal fibrosis with cicatrix formation. 08/22/2020 11:47 AM CDT [facility] Gross Description The requisition and specimen are identified with patient's name and date of . Received in formalin, specimen A, abdominal wall skin is an ellipse of jin, wrinkled skin measuring 20.5 x 2.3 cm, excised to a depth of 1.5 cm. Sectioning shows jin to pink-jin, fibroadipose tissue cut surfaces. Branch General Manager sections submitted in cassette A1. LJ 08/22/2020 11:47 AM CDT [facility] Microscopic Description A microscopic examination was performed. 08/22/2020 11:47 AM CDT [facility] Disclaimer All histochemical and/or immunohistochemical results are interpreted with controls that demonstrate appropriate staining reactions before reporting results. Note on use of immunocytochemistry reagents: This test was developed and its performance characteristic determined by [facility], Department of Laboratory Medicine. It has not been cleared or approved by the U.S. Food and Drug Administration (FDA). The FDA has determined that such clearance or approval is not necessary. The test is used for clinical purpose. It should not be regarded as investigational or for research. This laboratory is certified to perform high complexity testing. The performance characteristics of the IHC/ARCHIE assays have been validated on formalin-fixed paraffin embedded tissues only. The assays have not been validated on decalcified tissues. Results should be interpreted with caution. 08/22/2020 11:47 AM CDT [facility] Embedded Images 08/22/2020 11:47 AM CDT [facility] Pathology/Cytolo gy TISSUE SPECIMEN / Unknown 08/21/2020 1:46 PM CDT 08/21/2020 3:50 PM CDT Comment:Pre-op diagnosis: Diagnosis unknown [R69] Olayinka Razo MD LAB - PATHOLOGY/CYTO LOGY ORDERABLES Performing Organization Address City/State/[facility] Co de Phone Number [facility] [address], [place] [phone] * SARS-COV-2 (COVID-19) PRE-SURGICAL/PROCEDURE (08/18/2020 1:16 PM CDT) COVID-19 PCR Not detected Not detected 08/19/2020 4:19 AM CDT [facility] Microbiology SPECIMEN FROM NASOPHARYNGEAL STRUCTURE / Unknown Collection / Unknown 08/18/2020 1:16 PM CDT 08/18/2020 1:22 PM CDT Narrative [facility] - 08/19/2020 4:19 AM CDT This Real Time RT-PCR assay was developed and its performance characteristics determined by [facility]. This test has been authorized by the Food and Drug administration (FDA)under an Emergency Use Authorization (EUA). This test has been validated in accordance with the FDA's guidance document Policy for Diagnostic Testing in Laboratories Certified to perform High Complexity Testing under CLIA prior to Emergency Use Authorization for Coronavirus Disease-2019 during the Public Health Emergency issued on July 03, 2019. FDA independent review of this validation is pending. This test is only authorized for the duration of time the declaration that circumstances exist justifying the authorization of emergency use of in vitro diagnostic tests for detection of SARS-CoV-2 virus and/or diagnosis of COVID-19 infection under section 564(b)(1) of the Act, 21 U.S.C 360bbb-3 (b)(1), unless the authorization is terminated or revoked sooner. Fact Sheets for this EUA assay are available upon request. Olayinka Razo MD LAB - MICROBIOLOGY O RDERABLES [facility] [address] [phone] * (ABNORMAL) HEMOGLOBIN A1C (06/24/2017 9:03 AM PRODUCT DEVELOPMENT COORDINATOR) Only the most recent of2 resultswithin the time period is included. Hemoglobin A1c 9.8(H) 4.2 - 6.3 % [facility] ACCOUNT BILL Comment:AVERAGE GLUCOSE MG/D L BLOOD 235 mg/dL Whole Blood BLOOD SPECIMEN WITH EDTA / Unknown 06/24/2017 9:03 AM PRODUCT DEVELOPMENT COORDINATOR 06/24/2017 Narrative Resulting Agency Comment [facility] [address] [facility] [phone] Rea Rajan MD LAB - ELEVATING GRADER OPERATOR RY ORDERABLES [facility] ACCOUNT BILL [address] [place] [address] * (ABNORMAL) COMPREHENSIVE METABOLIC PANEL (06/24/2017 9:03 AM PRODUCT DEVELOPMENT COORDINATOR) Only the most recent of10 resultswithin the time period is included. Glucose 178(H) 74 - 106 mg/dL [facility] ACCOUNT BILL BUN 12 7 - 21 mg/dL [facility] ACCOUNT BILL Creatinine 0.99 0.50 - 1.30 mg/dL [facility] ACCOUNT BILL eGFR by MDRD >60 >60 mL/min/1.7 3m2 [facility] ACCOUNT BILL eGFR by MDRD >60 >60 mL/min/1.7 3m2 [facility] ACCOUNT BILL Sodium 137 136 - 145 mmol/L [facility] ACCOUNT BILL Potassium 4.4 3.5 - 5.1 mmol/L [facility] ACCOUNT BILL Chloride 102 98 - 107 mmol/L [facility] ACCOUNT BILL CO2 29 22 - 31 mmol/L [facility] ACCOUNT BILL Calcium 9.2 8.5 - 10.1 mg/dL [facility] ACCOUNT BILL Protein Total 7.4 6.4 - 8.2 gm/dL [facility] ACCOUNT BILL Albumin 4.2 3.4 - 5.0 gm/dL [facility] ACCOUNT BILL Bilirubin Total 1.2(H) 0.2 - 1.0 mg/dL [facility] ACCOUNT BILL Alkaline Phosphatase 79 38 - 126 U/L [facility] ACCOUNT BILL AST 39 5 - 40 U/L [facility] ACCOUNT BILL ALT 83(H) 13 - 61 U/L [facility] ACCOUNT BILL Blood BLOOD SPECIMEN / Unknown 06/24/2017 9:03 AM PRODUCT DEVELOPMENT COORDINATOR 06/24/2017 Narrative Resulting Agency Comment [facility] [address] [place] [phone] Rea Rajan MD LAB - ELEVATING GRADER OPERATOR RY ORDERABLES [facility] ACCOUNT BILL [address] [place] [address] * (ABNORMAL) LIPID PROFILE (06/24/2017 9:03 AM PRODUCT DEVELOPMENT COORDINATOR) Cholesterol 185 <200 mg/dL [facility] ACCOUNT BILL Triglycerides 163(H) <150 mg/dL [facility] ACCOUNT BILL HDL Cholesterol 51 >40 mg/dL [facility] ACCOUNT BILL VLDL Calculated 33(H) <=30 mg/dL [facility] ACCOUNT BILL LDL Calculated 101 <130 mg/dL [facility] ACCOUNT BILL Blood BLOOD SPECIMEN / Unknown 06/24/2017 9:03 AM PRODUCT DEVELOPMENT COORDINATOR 06/24/2017 Narrative Resulting Agency Comment [facility] [address] [facility] [phone] Rea Rajan MD LAB - ELEVATING GRADER OPERATOR RY ORDERABLES Performing Organization Address City/[facility]/ZIP Co de Phone Number [facility] ACCOUNT [place] [address] * LYME DISEASE AB IGG WB (02/17/2017 1:03 PM CDT) Lyme Disease Antibody IgG Western Blot NEGATIVE NEGATIVE [facility] 18 KD IgG Band NON-REACTIVE [facility] 23 KD IgG Band NON-REACTIVE [facility] 28 KD IgG Band NON-REACTIVE [facility] 30 KD IgG Band NON-REACTIVE [facility] 39 KD IgG Band NON-REACTIVE [facility] 41 KD IgG Band NON-REACTIVE [facility] 45 KD IgG Band NON-REACTIVE [facility] 58 KD IgG Band NON-REACTIVE [facility] 66 KD IgG Band NON-REACTIVE [facility] 93 KD IgG Band NON-REACTIVE [facility] Comment: As per CDC criteria, a Lyme disease IgG immunoblot must show reactivity to at least 5 of 10 specific borrelial proteins to be considered positive. Although considered negative, reactivity to fewer borrelial proteins may indicate recent B. burgdorferi infection and warrant testing of a later sample. In rare instances, reactivity may represent antibodies induced by exposure to other spirochetes. Test Performed at: [facility] [address] [place] [address] BERNADETTE GARCIA DO,MPH Blood BLOOD SPECIMEN / Unknown 02/17/2017 1:03 PM CDT 02/17/2017 1:04 PM CDT Kevin Verma MD LAB - SEROLOGY ORDER JACQUELINE Performing Organization Address City/[facility]/ZIP Co de Phone Number [facility] [address] [place] [address] * GROSS EXAM PATHOLOGY (STL) (12/25/2016 8:08 AM CDT) Case Report Surgical Pathology Report Case: [id number] Authorizing Provider: Kwesi Rausch MD Collected: 12/25/2016 08:08 AM Ordering Location: [facility] Received: 12/25/2016 09:01 AM Pathologist: Kimberly Gonsalves MD Specimen: Muscle Biopsy, Right Quadricep Muscle Biopsy 01/07/2017 9:52 PM CDT [facility] Addendum 1 The muscle biopsy was sent to [facility] for further evaluation. The results are as follows: Interpretation :Hypertrophy of type II muscle fibers suggests increased usage. There is no evidence of a myopathy. Type II muscle fiber predominance has no strong clinical correlation. Please see scanned report for further details. 01/07/2017 9:52 PM [facility] Addendum electronically signed by Kimberly Gonsalves MD on 01/07/2017 at 9:52 PM Final Diagnosis Quadriceps muscle, right, biopsy: - Grossly consistent with muscle (see gross description) - Sent to [facility] for further evaluation 01/07/2017 9:52 PM [facility] Clinical History Preop diagnosis: Q99.8 01/07/2017 9:52 PM [facility] Gross Description Specimen is received fresh, labeled with the patient's name, Pilcic, Ac, and right quadriceps muscle consists of a portion of red tissue, grossly consistent with skeletal muscle which is in a plastic muscle clamp and wrapped in saline-soaked gauze. The muscle tissue measures 2.5 x 1.5 x 0.5 cm. The specimen is forwarded in its entirety to [facility] for further evaluation. PATRICE/johnathan 01/07/2017 9:52 PM [facility] Microscopic Description None. 01/07/2017 9:52 PM [facility] Embedded Images 01/07/2017 9:52 PM [facility] Pathology/Cytolo gy MUSCLE BIOPSY SPECIMEN / Unknown 12/25/2016 8:08 AM CDT 12/25/2016 9:01 AM CDT Kwesi Rausch MD LAB - PATHOLOGY/CYTO LOGY ORDERABLES [facility] [address] [place] [id number] * PATHOLOGY/CYTOLOGY REPORT ORDER (12/25/2016) Provider Unknown LAB - PATHOLOGY/CYTO LOGY ORDERABLES * AMB REFERRAL TO GENERAL SURGERY (12/10/2016 10:52 AM CDT) Jose Read MD OUTPATIENT REFERRALS * ALDOLASE (12/03/2016 12:05 PM CDT) Only the most recent of2 resultswithin the time period is included. Aldolase 8.3 3.3 - 10.3 U/L [facility] ACCOUNT BILL Comment:FASTING Blood BLOOD SPECIMEN / Unknown 12/03/2016 12:05 PM CDT 12/03/2016 Narrative Resulting Agency Comment [facility] [address] [facility] [phone] Jose Read MD LAB - CHEMISTRY LISA GORDILLO Performing Organization Address City/[facility]/ZIP Co de Phone Number [facility] ACCOUNT BILL [address] [place] [address] * RPR (09/23/2016 3:29 PM CDT) RPR Non Reactive Non Reactive [facility] ACCOUNT BILL Blood BLOOD SPECIMEN / Unknown 09/23/2016 3:29 PM CDT 09/23/2016 Narrative Resulting Agency Comment [facility] [address] [place] [phone] Jose Read MD LAB - CHEMISTRY LISA GORDILLO Performing Organization Address City/[facility]/ZIP Co de Phone Number [facility] ACCOUNT BILL [address] [place] [address] * (ABNORMAL) CK BLOOD (09/23/2016 3:26 PM CDT) CK 388(H) 35 - 232 U/L [facility] ACCOUNT BILL Blood BLOOD SPECIMEN / Unknown 09/23/2016 3:26 PM CDT 09/23/2016 Narrative Resulting Agency Comment [facility] [address] [place] [phone] Jose Read MD LAB - CHEMISTRY LISA GORDILLO Performing Organization Address City/[facility]/ZIP Co de Phone Number [facility] ACCOUNT BILL [address] [place] [address] * (ABNORMAL) MYOSITIS ANTIBODY PANEL COMPREHENSIVE (09/23/2016 3:24 PM CDT) Mi-2 Antibody Negative [facility] ACCOUNT BILL Comment: Reference Range: Qualitative test Negative: normal Positive: abnormal KU Negative [facility] ACCOUNT BILL Comment: Reference Range: Qualitative test Negative: normal Positive: abnormal SRP Antibody Negative [facility] ACCOUNT BILL Comment: Reference Range: Qualitative test Negative: normal Positive: abnormal PL-7 Negative [facility] ACCOUNT BILL Comment: Reference Range: Qualitative test Negative: normal Positive: abnormal Antibodies against PL-7 have a prevalence of approximately 3% to up to 6% in myositis patients, partly overlapping with SLE, SSc or interstitial lung fibrosis. The prevalence of antibodies against EJ and OJ in myositis patients is up to 3% . *This test has been developed and performance parameters have been validated by [employer] This test has not been approved by the U.S. Food and Drug Administration (FDA); however, FDA approval is not required for clinical use. It is not intended that clinical diagnosis and patient management decisions be made using these results alone. This test has been validated using serum samples. The dentist has not determined the efficacy of this test when performed on CSF, plasma, joint or pleural fluid specimens. The performance characteristics of this test were determined by [employer] PL-12 Positive(A) [facility] ACCOUNT BILL Comment: Reference Range: Qualitative test Negative: normal Positive: abnormal EJ Negative [facility] ACCOUNT BILL Comment: Reference Range: Qualitative test Negative: normal Positive: abnormal OJ Negative [facility] ACCOUNT BILL Comment: Reference Range: Qualitative test Negative: normal Positive: abnormal Cheryl-1 WB Negative [facility] ACCOUNT BILL Comment: Reference Range: Qualitative test Negative: normal Positive: abnormal Antibodies against PL-7 have a prevalence of approx. 3% to up to 6% in myositis patients, partly overlapping with SLE, SSc or interstitial lung fibrosis. The prevalence of antibodies against other t-RNA synthetase antigens such as PL-12, EJ, OJ, is seen in in myositis patients up to 3-5%. Antibodies against Mi-2 are highly specific for dermatomyositis and can be found in 15-30% of patients. Antibodies against Ku have a prevalence of up to 10% in systemic lupus erythematosus (SLE). The presence of SRP antibodies is predominantly associated with polymyositis. The prevalence of SRP antibodies in idiopathic inflammatory myopathy (IIM) is 4-5%. Antibodies against Cheryl-1 are found in polymyositis with a prevalence of 25% to 55%. They are often associated with simultaneously occurring autoimmune diseases such as SLE, SSc or connective tissue between the alveoli and the surrounding blood vessels. *This test was developed and its performance characteristics determined by [employer]. It has not been cleared or approved by the U.S. Food and Drug administration. Blood BLOOD SPECIMEN / Unknown 09/23/2016 3:24 PM CDT 09/23/2016 Narrative Resulting Agency Comment [facility] [address] [place] [phone] Jose Read MD LAB - CHEMISTRY ORDE RAND Performing Organization Address [facility] Co de Phone Number [facility] ACCOUNT BILL [address] [place] [address] * LYME DISEASE AB IGM + TOTAL RFLX WB (POREFLAB) (09/23/2016 3:24 PM CDT) Pathologist [facility] Lyme Disease Antibody IgG/IgM <0.91 0.00 - 0.90 ISR [facility] ACCOUNT BILL Comment: Negative <0.91 Equivocal 0.91 - 1.09 Positive >1.09 Lyme Disease Antibody IgM Quantitative <0.80 0.00 - 0.79 index [facility] ACCOUNT BILL Comment: Negative <0.80 Equivocal 0.80 - 1.19 Positive >1.19 . IgM levels may peak at 3-6 weeks post infection, then gradually decline. Blood BLOOD SPECIMEN / Unknown 09/23/2016 3:24 PM CDT 09/23/2016 Narrative Resulting Agency Comment [facility] [address] [facility] [phone] Jose Read MD LAB - SEROLOGY ORDER JACQUELINE Performing Organization Address City/[facility] Co de Phone Number [facility] ACCOUNT BILL [address] [place] [address] * IMMUNOFIXATION (09/23/2016 3:24 PM CDT) Immunofixation Result [facility] ACCOUNT BILL Comment:No monoclonality det ected. IgG Quantitative 976 700 - 1,600 mg/dL [facility] ACCOUNT BILL IgA Quantitative 213 90 - 386 mg/dL [facility] ACCOUNT BILL IgM Quantitative 157 20 - 172 mg/dL [facility] ACCOUNT BILL Blood BLOOD SPECIMEN / Unknown 09/23/2016 3:24 PM CDT 09/23/2016 Narrative Resulting Agency Comment [facility] [address] [facility] [phone] Jose Read MD LAB - CHEMISTRY LISA GORDILLO [facility] ACCOUNT BILL [address] [place] [address] * ANCA VASCULITIS PANEL (09/23/2016 3:24 PM CDT) Anti-myeloperoxid ase (MPO) Antibody <9.0 0.0 - 9.0 U/mL [facility] ACCOUNT BILL Anti-proteinase 3 (UT-3) Abs <3.5 0.0 - 3.5 U/mL [facility] ACCOUNT BILL Cytoplasmic (C-ANCA) <1:20 Neg:<1:20 titer [facility] ACCOUNT BILL p-ANCA Titer <1:20 Neg:<1:20 titer [facility] ACCOUNT BILL Comment: The presence of positive fluorescence exhibiting P-ANCA or C-ANCA patterns alone is not specific for the diagnosis of Antwan's Granulomatosis (WG) or microscopic polyangiitis. Decisions about treatment should not be based solely on ANCA IFA results. The [employer] ANCA [employer] Consensus recommends follow up testing of positive sera with both UT-3 and MPO-ANCA enzyme immunoassays. As many as 5% serum samples are positive only by EIA. Ref. AM J Clin Pathol 1999;111:507-513. Atypical p-ANCA Titer <1:20 Neg:<1:20 titer [facility] ACCOUNT BILL Comment: The atypical pANCA pattern has been observed in a significant percentage of patients with ulcerative colitis, primary sclerosing cholangitis and autoimmune hepatitis. Blood BLOOD SPECIMEN / Unknown 09/23/2016 3:24 PM CDT 09/23/2016 Narrative Resulting Agency Comment [facility] [address] [facility] [phone] Jose Read MD LAB - CHEMISTRY LISA GORDILLO Performing Organization Address City/[facility]/ZIP Co de Phone Number [facility] ACCOUNT BILL [address] [place] [address] * C-REACTIVE PROTEIN (09/23/2016 3:24 PM CDT) Only the most recent of2 resultswithin the time period is included. C-Reactive Protein <0.29 <0.30 mg/dL [facility] ACCOUNT BILL Blood BLOOD SPECIMEN / Unknown 09/23/2016 3:24 PM CDT 09/23/2016 Narrative Resulting Agency Comment [facility] [address] [place] [phone] Jose Read MD LAB - CHEMISTRY LISA GORDILLO Performing Organization Address [facility] Co de Phone Number [facility] ACCOUNT BILL [address] [place] [address] * SED RATE WESTERGREN (09/23/2016 3:24 PM CDT) Only the most recent of2 resultswithin the time period is included. Erythrocyte Sedimentation Rate Westergren 9 0 - 15 mm/hr [facility] ACCOUNT BILL Blood BLOOD SPECIMEN / Unknown 09/23/2016 3:24 PM CDT 09/23/2016 Narrative Resulting Agency Comment [facility] [address] [place] [address] [phone] Jose Read MD LAB - HEMATOLOGY ORD ERABLES Performing Organization Address City/[facility] Co de Phone Number [facility] ACCOUNT BILL [address] [place] [address] * PROTEIN ELECTROPHORESIS BLOOD (09/23/2016 3:24 PM CDT) Protein Total 7.1 6.0 - 8.5 g/dL [facility] ACCOUNT BILL Albumin 4.1 2.9 - 4.4 g/dL [facility] ACCOUNT BILL Alpha-1 Globulin 0.2 0.0 - 0.4 g/dL [facility] ACCOUNT BILL Qgusc-6-Hymxnxtv 0.6 0.4 - 1.0 g/dL [facility] ACCOUNT BILL Beta-Globulin 1.0 0.7 - 1.3 g/dL [facility] ACCOUNT BILL Gamma Globulin 1.1 0.4 - 1.8 g/dL [facility] ACCOUNT BILL M-Darren Not Observed Not Observed g/dL [facility] ACCOUNT BILL Globulin Total 3.0 2.2 - 3.9 g/dL [facility] ACCOUNT BILL Albumin/Globulin Ratio 1.4 0.7 - 1.7 [facility] ACCOUNT BILL Please Note [facility] ACCOUNT BILL Comment: Protein electrophoresis scan will follow via computer, mail, or title clerk delivery. P E Interpretation, S [facility] ACCOUNT BILL Comment: The SPE pattern appears essentially unremarkable. Evidence of monoclonal protein is not apparent. Blood BLOOD SPECIMEN / Unknown 09/23/2016 3:24 PM CDT 09/23/2016 Narrative Resulting Agency Comment [facility] [address] [facility] [phone] Jose Read MD LAB - CHEMISTRY LISA GORDILLO [facility] Organization Address City/State/ZIP Co de Phone Number [facility] ACCOUNT BILL [address] [place] [address] * MRI BRAIN WITH AND WITHOUT CONTRAST (08/27/2016 7:55 AM CDT) Anatomical Region Laterality Modality Head Magnetic Resonan ce 08/27/2016 11:5 9 AM CDT Impressions 08/27/2016 1:01 PM CDT Numerous punctate subcortical and deep white matter lesions are nonspecific. Chronic demyelination would be the main consideration, although none of the lesions demonstrate classic characteristics such as Brooks's fingers. None of these lesions enhance. Lesions could also be a sequelae of chronic microangiopathic change with appropriate vascular history. Edited by Tomasa Thompson on 08/27/2016 12:10 PM Narrative 08/27/2016 1:01 PM CDT MRI BRAIN WITH AND WITHOUT CONTRAST INDICATION: Persistent lower and upper extremity numbness and tingling, visual disturbance. TECHNIQUE: Multisequence, multiplanar sequences of the brain with and without contrast, Dotarem 20 cc was administered. FINDINGS: No prior imaging for comparison. The sella is unremarkable. No Chiari malformation is seen. There are numerous scattered punctate predominantly subcortical deep white matter lesions which are nonspecific. No periventricular lesions are seen. No lesions appear to represent Brooks's fingers. Upper cervical cord is unremarkable. No diffusion restriction is seen to indicate ischemia. No mass, hemorrhage, or midline shift is seen. The ventricular size is normal. There are no extra-axial fluid collections. Flow void is seen in the major intracranial vessels. No abnormal enhancement is seen. The paranasal sinuses and mastoid air cells are clear. Procedure Note Mario Gill MD - 08/27/2016 MRI BRAIN WITH AND WITHOUT CONTRAST INDICATION: Persistent lower and upper extremity numbness and tingling, visual disturbance. TECHNIQUE: Multisequence, multiplanar sequences of the brain with and without contrast, Dotarem 20 cc was administered. FINDINGS: No prior imaging for comparison. The sella is unremarkable. No Chiari malformation is seen. There are numerous scattered punctate predominantly subcortical deep white matter lesions which are nonspecific. No periventricular lesions are seen. No lesions appear to represent Brooks's fingers. Upper cervical cord is unremarkable. No diffusion restriction is seen to indicate ischemia. No mass, hemorrhage, or midline shift is seen. The ventricular size is normal. There are no extra-axial fluid collections. Flow void is seen in the major intracranial vessels. No abnormal enhancement is seen. The paranasal sinuses and mastoid air cells are clear. IMPRESSION Numerous punctate subcortical and deep white matter lesions are nonspecific. Chronic demyelination would be the main consideration, although none of the lesions demonstrate classic characteristics such as Brooks's fingers. None of these lesions enhance. Lesions could also be a sequelae of chronic microangiopathic change with appropriate vascular history. Edited by Tomasa Thompson on 08/27/2016 12:10 PM Jose Juan Thornton MD MR ORDERABLES * EMG (08/20/2016 4:26 PM CDT) Narrative Jose Juan Thornton MD - 08/20/2016 4:26 PM CDT Jose Juan Thornton MD 08/20/2016 4:26 PM Patient: Ac Umanzor V #: Physician: Jose Juan Thornton MD Sex: Male ID#: [id number] Ref Phys: Nobrerto Manzano MD : 1980 Date: 08/20/2016 Pocket Operator: Janes Solares Patient Complaints: The patient is a 36 year old male with complaints of pain, numbness, and tingling in bilateral lower extremities. The symptoms have been present for 2 weeks. EMG & NCV Findings: 1. The Right Median/Ulnar Palmar comparison nerve conduction study showed prolonged peak latency (Median Palm, 2.4 ms) and slow conduction velocity (Median Palm-Wrist, 40 m/s). 2. All remaining nerve conduction studies (as indicated in the following tables) were normal. 3. H-reflex studies indicate that the Left tibial H-reflex has no response. 4. All remaining H Reflex latencies were within normal limits. ? EMG of all examined muscles (as indicated in the following table) was normal. IMPRESSION This is an abnormal EMG study showing evidence of : 1. Mild right carpal tunnel syndrome. 2. Left S1 radiculopathy due to absent H response without evidence of denervation. 3. No evidence of large fiber polyneuropathy or myopathy. 4. Please correlate clinically. Jose Juan Thornton MD Diplomate, Neuromuscular and Electrodiagnostic Medicine Nerve Conduction Studies Motor Summary Table Site NR Onset (ms) Norm Onset (ms) O-P Amp (mV) Norm O-P Amp Neg Area (mV ms) Site1 Site2 Delta-0 (ms) Dist (cm) Jerry (m/s) Norm Jerry (m/s) Right Median Motor (Abd Poll Brev) Wrist 3.8 <4.2 8.4 >4 27.57 Elbow Wrist 4.4 25.5 58 >48 Elbow 8.2 7.7 25.49 Left Peroneal Motor (Ext Dig Brev) Ankle 5.2 <6.6 4.2 >2.0 13.81 B Fib Ankle 7.5 38.5 51 >42 B Fib 12.7 4.5 15.80 Poplt B Fib 1.2 7.0 58 >42 Poplt 13.9 4.3 15.66 Right Tibial ADH Motor (Abd Khan Brev) Ankle 3.8 <6.6 8.0 >2.0 15.07 Knee Ankle 8.8 45.5 52 >42 Knee 12.6 4.7 13.65 Anti Sensory Summary Table Site NR Onset (ms) Peak (ms) Norm Onset (ms) O-P Amp ( V) Norm O-P Amp Site1 Site2 Delta-0 (ms) Dist (cm) Jerry (m/s) Norm Jerry (m/s) Right Radial Anti Sensory (Base 1st Digit) Wrist 1.6 2.2 19.8 15 Wrist Base 1st Digit 1.6 10.0 63 >53 Left Sural Anti Sensory (Lat Mall) Calf 2.5 3.2 <4.0 11.7 >5.0 Calf Lat Mall 2.5 14.0 56 >46 Right Sural Anti Sensory (Lat Mall) Calf 3.0 3.6 <4.0 9.8 >5.0 Calf Lat Mall 3.0 14.0 47 >46 Comparison Summary Table Site NR Onset (ms) Peak (ms) Norm Onset (ms) O-P Amp ( V) Site1 Site2 Delta-0 (ms) Norm Delta (ms) Jerry (m/s) Norm Jerry (m/s) Right Median/Ulnar Palmar Comparison (Wrist) Median Palm 2.0 2.4 18.0 Median Palm Wrist 2.0 40 >55 Ulnar Palm 1.3 1.8 14.7 Ulnar Palm Wrist 1.3 62 >53 Median Palm Ulnar Palm 0.7 >0.4 H Reflex Studies NR H-Lat (ms) Lat Norm (ms) L-R H-Lat (ms) L-R Lat Norm Left Tibial (Soleus) NR <34 <2.0 Right Tibial (Soleus) 29.81 <34 <2.0 EMG Side Muscle Nerve Root Insrt Fibs Psw Fasc Amp Dur Poly Recrt Comm Left DIP IV LatPlantar S1-2 Nml Nml Nml 0 Nml Nml 0 Nml Left LatGastroc Tibial S1-2 Nml Nml Nml 0 Nml Nml 0 Nml Left MedGastroc Tibial S1-2 Nml Nml Nml 0 Nml Nml 0 Nml Left AntTibialis Dp Br Peron L4-5 Nml Nml Nml 0 Nml Nml 0 Nml Left VastusLat Femoral L2-4 Nml Nml Nml 0 Nml Nml 0 Nml Right DIP IV LatPlantar S1-2 Nml Nml Nml 0 Nml Nml 0 Nml Right LatGastroc Tibial S1-2 Nml Nml Nml 0 Nml Nml 0 Nml Right MedGastroc Tibial S1-2 Nml Nml Nml 0 Nml Nml 0 Nml Right AntTibialis Dp Br Peron L4-5 Nml Nml Nml 0 Nml Nml 0 Nml Right VastusLat Femoral L2-4 Nml Nml Nml 0 Nml Nml 0 Nml Right Abd Poll Brev Median C8-T1 Nml Nml Nml 0 Nml Nml 0 Nml Right 1stDorInt Ulnar C8-T1 Nml Nml Nml 0 Nml Nml 0 Nml Right ExtIndicis Radial (Post Int) C7-8 Nml Nml Nml 0 Nml Nml 0 Nml Right Biceps Musculocut C5-6 Nml Nml Nml 0 Nml Nml 0 Nml Right Deltoid Axillary C5-6 Nml Nml Nml 0 Nml Nml 0 Nml Waveforms: Jose Juan Thornton MD NEUROLOGY ORDERABLES * METHYLMALONIC ACID BLOOD (08/20/2016 4:22 PM CDT) Methylmalonic Acid 127 0 - 378 nmol/L [facility] ACCOUNT BILL Blood BLOOD SPECIMEN / Unknown 08/20/2016 4:22 PM CDT 08/20/2016 Narrative Resulting Agency Comment [facility] [address] [phone] Jose Juan Thornton MD LAB - CHEMISTRY LISA GORDILLO Performing Organization Address City/[facility] Co de Phone Number [facility] ACCOUNT BILL [address] [place] [address] * VITAMIN B6 (08/20/2016 4:22 PM CDT) Vitamin B6 10.8 5.3 - 46.7 ug/L [facility] ACCOUNT BILL Blood BLOOD SPECIMEN / Unknown 08/20/2016 4:22 PM CDT 08/20/2016 Narrative Resulting Agency Comment [facility] [address] [phone] Jose Juan Thornton MD LAB - CHEMISTRY LISA GORDILLO Performing Organization Address City/[facility] Co de Phone Number [facility] ACCOUNT BILL [address] [place] [address] * CULTURE URINE (07/09/2016 4:37 PM PRODUCT DEVELOPMENT COORDINATOR) Only the most recent of2 resultswithin the time period is included. Urine Culture Routine Final report [facility] ACCOUNT BILL Result 1 No growth [facility] ACCOUNT BILL Urine URINE SPECIMEN OBTAINED BY CLEAN CATCH PROCEDURE / Unknown 07/09/2016 4:37 PM PRODUCT DEVELOPMENT COORDINATOR 07/09/2016 Narrative Resulting Agency Comment [facility] [address] [facility] [phone] Rea Rajan MD LAB - MICROBI OLOGY ORDERABLES Performing Organization Address [facility] Co de Phone Number [facility] ACCOUNT BILL [address] [place] [address] * PROSTATE SPECIFIC ANTIGEN SCREEN (07/09/2016 2:42 PM PRODUCT DEVELOPMENT COORDINATOR) PSA 0.73 0.00 - 4.00 ng/mL [facility] ACCOUNT BILL Blood BLOOD SPECIMEN / Unknown 07/09/2016 2:42 PM PRODUCT DEVELOPMENT COORDINATOR 07/09/2016 Narrative Resulting Agency Comment [facility] [address] [facility] [phone] Rea Rajan MD LAB - ELEVATING GRADER OPERATOR RY ORDERABLES Performing Organization Address City/[facility]/ZIP Co de Phone Number [facility] ACCOUNT BILL [address] [place] [address] * URINALYSIS AUTO - POINT OF CARE (AMB) STL (07/09/2016) Only the most recent of3 resultswithin the time period is included. Clarity UA POCT clear Color UA POCT lucia Leukocyte UA negative Negative Nitrite UA POCT negative Negative Urobilinogen UA 1.0 0.1 - 1.0 Protein UA POCT negative Negative pH UA 6.5 5.0 - 8.0 pH units Blood UA negative Negtive Specific [place] UA POCT >=1.030 1.002 - 1.030 Ketone UA trace Negative Bilirubin UA POCT small Negative Glucose UA negative Negative Expiration Date 06/04/2017 Lot # [id number] Verified Yes Yes URINE / Unknown 07/09/2016 Rea Rajan MD LAB - POINT O F CARE ORDERABLES * DEONTE BLOOD SCREEN W/REFLEX TITER (07/02/2016 10:32 AM PRODUCT DEVELOPMENT COORDINATOR) DEONTE Negative Negative [facility] ACCOUNT BILL Blood BLOOD SPECIMEN / Unknown 07/02/2016 10:32 AM PRODUCT DEVELOPMENT COORDINATOR 07/02/2016 Narrative Resulting Agency Comment [facility] [address] [place] [phone] Rea Rajan MD LAB - ELEVATING GRADER OPERATOR RY ORDERABLES [facility] ACCOUNT BILL [address] [place] [address] * (ABNORMAL) CBC W AUTO DIFFERENTIAL (07/02/2016 10:32 AM PRODUCT DEVELOPMENT COORDINATOR) Only the most recent of21 resultswithin the time period is included. WBC 7.5 4.4 - 10.7 x10E9/L [facility] ACCOUNT BILL RBC 4.88 3.80 - 5.40 x10E12/L [facility] ACCOUNT BILL Hemoglobin 16.0 12.0 - 17.6 gm/dL [facility] ACCOUNT BILL Hematocrit 48.4 35.2 - 51.7 % [facility] ACCOUNT BILL MCV 99.2(H) 80.7 - 98.3 fL [facility] ACCOUNT BILL MCH 32.8 26.7 - 34.0 pg [facility] ACCOUNT BILL MCHC 33.1 30.8 - 35.9 gm/dL [facility] ACCOUNT BILL RDW 12.7 12.1 - 14.9 % [facility] ACCOUNT BILL Platelet Count 229 153 - 416 x10E9/L [facility] ACCOUNT BILL Comment:MPV FL BLOOD (M) 1 1.2 fl 9.4-12.9 Granulocytes % 65.7 44.0 - 73.0 % [facility] ACCOUNT BILL Lymphocytes % 23.9 20.0 - 43.0 % [facility] ACCOUNT BILL Monocytes % 8.5 5.0 - 13.0 % [facility] ACCOUNT BILL Eosinophils % 0.7 0.0 - 6.0 % [facility] ACCOUNT BILL Basophils % 0.7 0.0 - 2.0 % [facility] ACCOUNT BILL Granulocytes Absolute 4.96 2.01 - 7.14 x10E9/L [facility] ACCOUNT BILL Lymphocytes Absolute 1.80 1.07 - 3.94 x10E9/L [facility] ACCOUNT BILL Monocytes Absolute 0.64 0.26 - 1.07 x10E9/L [facility] ACCOUNT BILL Eosinophils Absolute 0.05 0 - 0.47 x10E9/L [facility] ACCOUNT BILL Basophils Absolute 0.05 0 - 0.08 x10E9/L [facility] ACCOUNT BILL Immature Granulocytes 0.5 0 - 1 % [facility] ACCOUNT BILL Immature Granulocytes Absolute 0.04 0.00 - 0.06 x10E9/L [facility] ACCOUNT BILL nRBC 0 /100 WBC [facility] ACCOUNT BILL Blood BLOOD SPECIMEN / Unknown 07/02/2016 10:32 AM PRODUCT DEVELOPMENT COORDINATOR 07/02/2016 Narrative Resulting Agency Comment [address] [phone] Rea Rajan MD LAB - HEMATOL OGY ORDERABLES [facility] ACCOUNT BILL [address] [place] [address] * FOLATE (07/02/2016 10:32 AM PRODUCT DEVELOPMENT COORDINATOR) [facility] Folate 11.9 3.1 - 17.5 ng/mL [facility] ACCOUNT BILL Blood BLOOD SPECIMEN / Unknown 07/02/2016 10:32 AM PRODUCT DEVELOPMENT COORDINATOR 07/02/2016 Narrative Resulting Agency Comment [address] [phone] Rea Rajan MD LAB - ELEVATING GRADER OPERATOR RY ORDERABLES [facility] ACCOUNT BILL [address] [place] [address] * VITAMIN B12 (07/02/2016 10:32 AM PRODUCT DEVELOPMENT COORDINATOR) Vitamin B12 373 211 - 911 pg/mL [facility] ACCOUNT BILL Blood BLOOD SPECIMEN / Unknown 07/02/2016 10:32 AM PRODUCT DEVELOPMENT COORDINATOR 07/02/2016 Narrative Resulting Agency Comment [facility] [address] [facility] [phone] Rea Rajan MD LAB - ELEVATING GRADER OPERATOR RY ORDERABLES Performing Organization Address City/[facility]/ZIP Co de Phone Number [facility] ACCOUNT BILL [address] [place] [address] * HYDROXYINDOLACETIC ACID URINE TIMED (06/27/2016 11:59 AM PRODUCT DEVELOPMENT COORDINATOR) 5-HIAA 24 Hour Urine 2.4 Undefined mg/L [facility] ACCOUNT BILL 5-HIAA 24 Hour Urine 2.2 0.0 - 14.9 mg/24 hr [facility] ACCOUNT BILL Comment: This test was developed and its performance characteristics determined by [facility]. It has not been cleared or approved by the Food and Drug Administration. Urine TIMED URINE SPECIMEN / Unknown 06/27/2016 11:59 AM PRODUCT DEVELOPMENT COORDINATOR 06/27/2016 Narrative Resulting Agency Comment [address] [phone] Rea Rajan MD LAB - URINE C HEMISTRY ORDERABLES Performing Organization Address City/[facility] Co de Phone Number [facility] ACCOUNT BILL [address] [place] [address] * METANEPHRINES URINE FRACTIONATED (06/27/2016 11:59 AM PRODUCT DEVELOPMENT COORDINATOR) Normetanephrine 24 Hour Urine 287 Undefined ug/L [facility] ACCOUNT BILL Normetanephrine Urine 258 82 - 500 ug/24 hr [facility] ACCOUNT BILL Comment:(Hypertensive) >17 y ears 11 months: 110 - 1050 Metanephrine 24 Hour Urine 137 Undefined ug/L [facility] ACCOUNT BILL Metanephrine Urine 123 45 - 290 ug/24 hr [facility] ACCOUNT BILL Comment:(Hypertensive) >17 y ears 11 months: 35 - 460 Urine TIMED URINE SPECIMEN / Unknown 06/27/2016 11:59 AM PRODUCT DEVELOPMENT COORDINATOR 06/27/2016 Narrative Resulting Agency Comment [facility] [address] [phone] Rea Rajan MD LAB - URINE C HEMISTRY ORDERABLES Performing Organization Address City/[facility] Co de Phone Number [facility] ACCOUNT BILL [address] [place] [address] * CBC W AUTO DIFFERENTIAL W PLATELETS (06/27/2016) BLOOD SPECIMEN / Unknown Rea Rajan MD LAB - HEMATOL OGY ORDERABLES * THYROID CASCADE PROFILE (PO REF LAB) (06/20/2016 10:12 AM PRODUCT DEVELOPMENT COORDINATOR) Pathologist [facility] TSH 1.590 0.450 - 4.500 uIU/mL [facility] ACCOUNT BILL BLOOD SPECIMEN / Unknown 06/20/2016 10:12 AM PRODUCT DEVELOPMENT COORDINATOR 06/20/2016 Narrative Resulting Agency Comment [facility] [address] [facility] [phone] Rea Rajan MD LAB - ELEVATING GRADER OPERATOR RY ORDERABLES Performing Organization Address [facility] de Phone Number [facility] ACCOUNT BILL [address] [place] [address] * MONONUCLEOSIS SCREEN (06/20/2016 10:12 AM PRODUCT DEVELOPMENT COORDINATOR) Only the most recent of2 resultswithin the time period is included. Mononucleosis Test Qualitative Negative Negative [facility] ACCOUNT BILL Comment: The sensitivity of Heterophile antibody testing is 80-90%. Nadine Ramirez IgM testing offers higher sensitivity. Blood BLOOD SPECIMEN / Unknown 06/20/2016 10:12 AM PRODUCT DEVELOPMENT COORDINATOR 06/20/2016 Narrative Resulting Agency Comment [facility] [address] [facility] [phone] Rea Rajan MD LAB - ELEVATING GRADER OPERATOR RY ORDERABLES Performing Organization Address City/[facility] Co de Phone Number [facility] ACCOUNT BILL [address] [place] [address] * LIPASE BLOOD (06/20/2016 10:12 AM PRODUCT DEVELOPMENT COORDINATOR) Only the most recent of4 resultswithin the time period is included. Lipase 134 73 - 393 U/L [facility] ACCOUNT BILL Blood BLOOD SPECIMEN / Unknown 06/20/2016 10:12 AM PRODUCT DEVELOPMENT COORDINATOR 06/20/2016 Narrative Resulting Agency Comment [facility] [address] [place] [phone] Rea Rajan MD LAB - ELEVATING GRADER OPERATOR RY ORDERABLES [facility] ACCOUNT BILL [address] [place] [address] * AMYLASE BLOOD (06/20/2016 10:12 AM PRODUCT DEVELOPMENT COORDINATOR) Amylase 43 15 - 115 U/L [facility] ACCOUNT BILL Blood BLOOD SPECIMEN / Unknown 06/20/2016 10:12 AM PRODUCT DEVELOPMENT COORDINATOR 06/20/2016 Narrative Resulting Agency Comment [facility] [address] [facility] [phone] Rea Rajan MD LAB - ELEVATING GRADER OPERATOR RY ORDERABLES [facility] ACCOUNT BILL [address] [place] [address] * INFLUENZA A+B - POINT OF CARE (AMB) (06/20/2016) Influenza A Antigen Rapid Negative Negative Influenza B Antigen Rapid Negative Negative Influenza Internal Control negative NEGATIVE - POSITIVE Influenza Lot Number [id number] Influenza Expiration Date 11/29/2017 Other NASOPHARYNGEAL SWAB / Unknown 06/20/2016 Rea Rajan MD LAB - POINT O F CARE ORDERABLES * ENDOSCOPY, UPPER (06/05/2016) Gordon Dudley MD GENERIC SURGICAL HI STORY * ENDOSCOPY, COLON, DIAGNOSTIC (06/05/2016) Gordon Dudley MD GI PROCEDURE ORDERA BLES * STREP A SCREEN - POINT OF CARE (AMB) STL (03/19/2016) Strep A Rapid POCT Negative Negative Strep A Internal Control Present Lot # [id number] Expiration Date 06/05/2016 Throat ENTIRE THROAT (SURFACE REGION OF NECK) / Unknown 03/19/2016 Rea Rajan MD LAB - POINT O F CARE ORDERABLES * CT ABDOMEN AND PELVIS WITH IV CONTRAST (02/17/2016 12:40 PM CDT) Only the most recent of4 resultswithin the time period is included. Anatomical Region Laterality Modality Abdomen, Pelvis Computed Tomogra phy 02/17/2016 1:26 PM CDT Impressions 02/17/2016 1:33 PM CDT 1. NO ACUTE INTRA-ABDOMINAL FINDINGS 2. POSTOPERATIVE CHANGES. Narrative 02/17/2016 1:[address] EXAMINATION OF THE ABDOMEN AND PELVIS INDICATION: Post cholecystectomy, colostomy. He complains of abdominal bloating, abdominal pain, diarrhea and passage of mucous. TECHNIQUE: 90 mL of Omnipaque 350 were given, intravenously, and axial images were made through the abdomen and pelvis. Unenhanced images of the upper abdomen were not made. FINDINGS: Comparison is made to 05/01/2015 study. Minimal hypoventilatory markings are seen in the lung bases. CT ABDOMEN: The liver, spleen, pancreas and biliary tree are unremarkable. The gallbladder is surgically absent. The gastric contours are within normal limits. I do not see any abnormally dilated small bowel loops. Major vessels are within normal limits. Both kidneys enhance symmetrically, without evidence of obstruction. There is no perirenal edema or appreciable renal mass lesion. I do not see any suspicious adenopathy. The appendix is well seen, and appears normal. There is stool in the ascending and transverse colon. The descending colon is decompressed, but does not show any wall thickening or edematous changes. There are postoperative changes at the midline and there is a laxity of the anterior abdominal wall musculature. There are what appear to be postoperative changes from a prior enterostomy overlying the mid left lateral rectus muscle, without any evidence of abscess or inflammatory change. CT PELVIS: The urinary bladder contour is unremarkable. There is no suspicious pelvic adenopathy. I do not see free peritoneal fluid or air. Again, there is laxity of the midline anterior abdominal wall, likely related to postoperative changes. I do not see discrete hernia. There is no suspicious adenopathy. I do not see any bowel wall thickening or edematous changes Procedure Note Esteban Fields MD - 02/17/2016 CT EXAMINATION OF THE ABDOMEN AND PELVIS INDICATION: Post cholecystectomy, colostomy. He complains of abdominal bloating, abdominal pain, diarrhea and passage of mucous. TECHNIQUE: 90 mL of Omnipaque 350 were given, intravenously, and axial images were made through the abdomen and pelvis. Unenhanced images of the upper abdomen were not made. FINDINGS: Comparison is made to 05/01/2015 study. Minimal hypoventilatory markings are seen in the lung bases. CT ABDOMEN: The liver, spleen, pancreas and biliary tree are unremarkable. The gallbladder is surgically absent. The gastric contours are within normal limits. I do not see any abnormally dilated small bowel loops. Major vessels are within normal limits. Both kidneys enhance symmetrically, without evidence of obstruction. There is no perirenal edema or appreciable renal mass lesion. I do not see any suspicious adenopathy. The appendix is well seen, and appears normal. There is stool in the ascending and transverse colon. The descending colon is decompressed, but does not show any wall thickening or edematous changes. There are postoperative changes at the midline and there is a laxity of the anterior abdominal wall musculature. There are what appear to be postoperative changes from a prior enterostomy overlying the mid left lateral rectus muscle, without any evidence of abscess or inflammatory change. CT PELVIS: The urinary bladder contour is unremarkable. There is no suspicious pelvic adenopathy. I do not see free peritoneal fluid or air. Again, there is laxity of the midline anterior abdominal wall, likely related to postoperative changes. I do not see discrete hernia. There is no suspicious adenopathy. I do not see any bowel wall thickening or edematous changes IMPRESSION 1. NO ACUTE INTRA-ABDOMINAL FINDINGS 2. POSTOPERATIVE CHANGES. Rea Rajan MD CT ORDERABLES * URINALYSIS - POINT OF CARE (02/15/2016 2:28 PM CDT) Clarity UA POCT clear Color UA POCT yellow Leukocyte UA negative Negative Nitrite UA POCT negative Negative Urobilinogen UA 0.2 0.1 - 1.0 Protein UA POCT negative Negative pH UA 7.0 5.0 - 8.0 pH units Blood UA negative Negtive Specific [place] UA POCT 1.020 1.002 - 1.030 Ketone UA negative Negative Bilirubin UA POCT negative Negative Glucose UA negative Negative Urine specimen (specimen) URINE / Unknown 02/15/2016 2:28 PM CDT Rea Rajan MD LAB - POINT O F CARE ORDERABLES * NM HEPATOBILIARY WITH EF (10/10/2015 2:45 PM CDT) Anatomical Region Laterality Modality Abdomen Nuclear Digisoni cs 10/10/2015 3:10 PM CDT Impressions 10/10/2015 3:11 PM CDT 1. NO EVIDENCE OF CYSTIC OR COMMON BILE DUCT OBSTRUCTION. 2. NO SCINTIGRAPHIC EVIDENCE OF ACUTE CHOLECYSTITIS. 3. 6 % GALLBLADDER EJECTION FRACTION. Narrative 10/10/2015 3:11 PM CDT HEPATOBILIARY IMAGING WITH EJECTION FRACTION DETERMINATION INDICATION: Right upper quadrant pain with nausea. RADIOPHARMACEUTICAL: 5 mCi of Tc 99m Choletec, intravenously. PROVOCATIVE AGENT: 2.1 mcg of cholecystokinin. FINDINGS: Images made after the administration of radiopharmaceutical show prompt clearance of blood pool activity. There is rapid conjugation and excretion of the tracer, with activity being seen in the common bile duct on the 10 minute image. Subsequent images show progressive accumulation of tracer within the gallbladder. There is passage into the small bowel, confirming common bile duct patency, as well. Time activity curve determinations made after administration of the cholecystokinin show a maximum ejection fraction of 6% at 29 minutes following the CCK infusion. Some authors report a normal value as being greater than 35%. Procedure Note Ysabel Chatman MD - 10/10/2015 HEPATOBILIARY IMAGING WITH EJECTION FRACTION DETERMINATION INDICATION: Right upper quadrant pain with nausea. RADIOPHARMACEUTICAL: 5 mCi of Tc 99m Choletec, intravenously. PROVOCATIVE AGENT: 2.1 mcg of cholecystokinin. FINDINGS: Images made after the administration of radiopharmaceutical show prompt clearance of blood pool activity. There is rapid conjugation and excretion of the tracer, with activity being seen in the common bile duct on the 10 minute image. Subsequent images show progressive accumulation of tracer within the gallbladder. There is passage into the small bowel, confirming common bile duct patency, as well. Time activity curve determinations made after administration of the cholecystokinin show a maximum ejection fraction of 6% at 29 minutes following the CCK infusion. Some authors report a normal value as being greater than 35%. IMPRESSION 1. NO EVIDENCE OF CYSTIC OR COMMON BILE DUCT OBSTRUCTION. 2. NO SCINTIGRAPHIC EVIDENCE OF ACUTE CHOLECYSTITIS. 3. 6 % GALLBLADDER EJECTION FRACTION. Luiza Mullins MD NM ORDERABLES * (ABNORMAL) BILIRUBIN TOTAL+DIRECT BLOOD PANEL (09/19/2015 1:54 PM CDT) Only the most recent of2 resultswithin the time period is included. Bilirubin Total 1.2 0.0 - 1.2 mg/dL [facility] INSURANCE BILL Bilirubin Direct 0.31 0.00 - 0.40 mg/dL [facility] INSURANCE BILL Bilirubin Indirect 0.89(H) 0.10 - 0.80 mg/dL [facility] INSURANCE BILL Blood specimen (specimen) BLOOD SPECIMEN / Unknown 09/19/2015 1:54 PM CDT 09/19/2015 6:03 PM CDT Narrative Resulting Agency Comment [facility] [phone] Luiza Mullins MD LAB - CHEMISTRY [facility] INSURANCE BILL * PATHOLOGY PERIPHERAL SMEAR REVIEW (09/07/2015 3:55 PM CDT) Pathologist Review of Peripheral Smear [facility] Comment: ERYTHROCYTES: NORMOCYTIC, NORMOCHROMIC; MILD ANISOCYTOSIS AND POIKILOCYTOSIS. NO NUCLEATED RED BLOOD CELLS ARE SEEN. LEUKOCYTES: ESTIMATED COUNT IS WITHIN NORMAL LIMITS. NO BLASTS OR OTHER ABNORMAL LEUKOCYTES ARE IDENTIFIED. PLATELETS: ESTIMATED COUNT IS ADEQUATE. MORPHOLOGY IS GENERALLY NORMAL WITH RARE GIANT PLATELETS. OCCASIONAL SMALL PLATELET CLUMPS ARE SEEN. MANUAL DIFFERENTIAL: 68% SEGMENTED NEUTROPHILS, 25% LYMPHOCYTES, 6% MONOCYTES AND 1% EOSINOPHILS. SUMMARY: NO SPECIFIC MORPHOLOGIC ABNORMALITY. ([id number]) THIS PERIPHERAL BLOOD SMEAR WAS REVIEWED BY: DONA ESTRELLA M.D. [facility] [facility] [address] [address] CLIA ID NO. [id number] Test Performed at: [place] [address] BERNADETTE GARCIA DO,MPH Blood specimen (specimen) BLOOD SPECIMEN / Unknown 09/07/2015 3:55 PM CDT 09/07/2015 3:56 PM CDT Rea Rajan MD LAB - PATHOLO GY/CYTOLOGY ORDERABLES Performing Organization Address [facility] [place] [address] * PT-INR (09/07/2015 3:55 PM CDT) [facility] INR 1.0 [facility] Comment: Reference Range 0.9-1.1 Moderate-intensity Warfarin Therapy 2.0-3.0 Higher-intensity Warfarin Therapy 3.0-4.0 PT 10.2 9.0 - 11.5 sec [facility] Comment: For more information on this test, go to: http://education.[employer]/faq/EBP847 Test Performed at: [place] [address] BERNADETTE GARCIA DO,MPH Blood specimen (specimen) BLOOD SPECIMEN / Unknown 09/07/2015 3:55 PM CDT 09/07/2015 3:56 PM CDT Rea Rajan MD LAB - COAGULA TION ORDERABLES Performing Organization Address [facility] Co de Phone Number [place] [phone] * LDH BLOOD (09/07/2015 3:55 PM CDT) [facility] LD-Total 171 100 - 220 U/L [facility] Comment: Test Performed at: [employer] [facility] [id number] BERNADETTE GARCIA DO,MPH Blood specimen (specimen) BLOOD SPECIMEN / Unknown 09/07/2015 3:55 PM CDT 09/07/2015 3:56 PM CDT Rea Rajan MD LAB - ELEVATING GRADER OPERATOR RY ORDERABLES Performing Organization Address [facility] [place] [address] * HAPTOGLOBIN (09/07/2015 3:55 PM CDT) Haptoglobin 178 43 - 212 mg/dL [facility] Comment: REPORT COMMENT: FASTING:NO Test Performed at: [facility] [place] [address] BERNADETTE GARCIA DO,MPH Blood specimen (specimen) BLOOD SPECIMEN / Unknown 09/07/2015 3:55 PM CDT 09/07/2015 3:56 PM CDT Rea Rajan MD LAB - ELEVATING GRADER OPERATOR RY ORDERABLES Performing Organization Address [facility] [place] [address] * (ABNORMAL) URINALYSIS ROUTINE W/REFLEX TO CULTURE (09/06/2015 12:00 PM CDT) Only the most recent of4 resultswithin the time period is included. Color UA Yellow Straw, Yellow, Dark Yellow 09/06/2015 12:12 PM CDT [facility] Clarity UA Clear 09/06/2015 12:12 PM CDT [facility] Specific [place] UA 1.002(L) 1.005 - 1.030 09/06/2015 12:12 PM CDT [facility] pH UA 6.0 5.0 - 8.0 pH 09/06/2015 12:12 PM CDT [facility] Protein UA Negative Negative 09/06/2015 12:12 PM CDT [facility] Blood UA Negative Negative 09/06/2015 12:12 PM CDT [facility] Leukocyte UA Negative Negative 09/06/2015 12:12 PM CDT [facility] Nitrite UA Negative Negative 09/06/2015 12:12 PM CDT [facility] Glucose UA Negative Negative 09/06/2015 12:12 PM CDT [facility] Ketone UA Negative Negative 09/06/2015 12:12 PM CDT [facility] Bilirubin UA Negative Negative 09/06/2015 12:12 PM CDT [facility] Urobilinogen UA 0.2 0.1 - 1.0 EU/dL 09/06/2015 12:12 PM CDT [facility] Reflex Status Culture not indicated 09/06/2015 12:12 PM CDT [facility] Urine URINE SPECIMEN OBTAINED BY CLEAN CATCH PROCEDURE / Unknown 09/06/2015 12:00 PM CDT 09/06/2015 12:09 PM CDT Anna HENRY LAB - URINALYSIS ORDERABLES [facility] [address] [id number] * NEURAXIAL BLOCK (08/01/2015 8:00 AM CDT) Narrative Nakia Murphy APRN-CRNA - 08/01/2015 8:00 AM CDT Nakia Murphy APRN-CRNA 08/01/2015 8:00 AM NEURAXIAL BLOCK Patient Location: OB Pre Procedure Indication: at surgeon's request Preanesthetic Checklist: patient identified, IV checked, site marked, risks and benefits discussed, surgical consent verified, monitors and equipment checked, pre-op evaluation done, timeout performed, informed consent obtained and questions answered / anesthesia plan accepted Monitors: BP and Pulse Ox Patient Condition: awake Patient Position: sitting Procedure Block Performed: epidural Prep: Chloraprep Sterile Field: mask, cap/hat, sterile field established and sterile gloves Approach: midline Skin Numbed with: lidocaine 1% Epidural Needle Type: Tuohy Needle Gauge: 18 Needle Length: 3.5 in Placement Site: T12-L1 Number of Attempts: 1 Loss of ResistanceTechnique: saline CSF Aspirated from Catheter: negative Blood Aspirated from Catheter: negative Test Dose: lidocaine 1.5% with 1 200 k epinephrine 3 ml Test Dose Response: negative Events CSF return negative injection not painful no paresthesia no other event Degree of Difficulty: none Position Post Procedure: supine Vital signs monitored and stable throughout. See Anesthesia Intraop record for details. Block Performed by: Nakia Murphy Kevin Rosario MD GENERAL ANESTHES [place] ORDERABLES * US ABDOMEN LIMITED RUQ and/or ASCITES (07/25/2015 1:50 PM CDT) Anatomical Region Laterality Modality Abdomen Ultrasound 07/25/2015 2:02 PM CDT Impressions 07/25/2015 2:03 PM CDT Unremarkable right upper quadrant ultrasound. No gallstones or evidence of acute cholecystitis. Narrative 07/25/2015 2:03 PM CDT Ultrasound Abdomen Limited Indication: Abdominal pain. Technique: Lehman scale and color images of the abdomen Findings: The imaged pancreas is within normal limits. Liver echotexture is homogeneous and no hepatic masses seen. The application of Doppler, color flow is confirmed in the portal vein and hepatic veins. No gallstones or gallbladder wall thickening. No pericholecystic fluid collection. No biliary ductal dilatation. The common bile duct measures 4 mm. The right kidney is within normal limits without stone or hydronephrosis measuring 11.4 x 6.9 x 7.3 cm. Procedure Note Hermelindo Ding MD - 07/25/2015 Ultrasound Abdomen Limited Indication: Abdominal pain. Technique: Lehman scale and color images of the abdomen Findings: The imaged pancreas is within normal limits. Liver echotexture is homogeneous and no hepatic masses seen. The application of Doppler, color flow is confirmed in the portal vein and hepatic veins. No gallstones or gallbladder wall thickening. No pericholecystic fluid collection. No biliary ductal dilatation. The common bile duct measures 4 mm. The right kidney is within normal limits without stone or hydronephrosis measuring 11.4 x 6.9 x 7.3 cm. IMPRESSION Unremarkable right upper quadrant ultrasound. No gallstones or evidence of acute cholecystitis. Kevin Rosario MD US ORDERABLES * FL FLUORO BARIUM ENEMA WATER SOLUBLE (07/11/2015 2:03 PM PRODUCT DEVELOPMENT COORDINATOR) Anatomical Region Laterality Modality Abdomen Radiographic Cielo ging 07/11/2015 2:49 PM PRODUCT DEVELOPMENT COORDINATOR Impressions 07/11/2015 2:59 PM PRODUCT DEVELOPMENT COORDINATOR No additional diverticula are seen. Edited by Tomasa Thompson on 07/11/2015 2:52 PM Narrative 07/11/2015 2:59 PM PRODUCT DEVELOPMENT COORDINATOR FLUOROSCOPIC LOWER GI SERIES HISTORY: Perforated diverticulitis, preparation for ostomy takedown. FINDINGS: Total fluoroscopy time is 0.5 minutes. Seventeen images were recorded. The ostomy bag was cannulated and contrast injected. No additional diverticula are seen. No stricture. Contrast is refluxed into the small bowel without difficulty. Procedure Note Mario Gill MD - 07/11/2015 FLUOROSCOPIC LOWER GI SERIES HISTORY: Perforated diverticulitis, preparation for ostomy takedown. FINDINGS: Total fluoroscopy time is 0.5 minutes. Seventeen images were recorded. The ostomy bag was cannulated and contrast injected. No additional diverticula are seen. No stricture. Contrast is refluxed into the small bowel without difficulty. IMPRESSION No additional diverticula are seen. Edited by Tomasa Thompson on 07/11/2015 2:52 PM Kevin Rosario MD FLUOROSCOPY LISA GORDILLO * (ABNORMAL) CULTURE ABSCESS+GRAM STAIN (05/02/2015 11:46 AM PRODUCT DEVELOPMENT COORDINATOR) Pathologist [facility] Culture Rare growth Priya species not albicans(A) STACI 05/06/2015 9:27 AM [facility] Gram Stain No organisms seen 05/06/2015 9:27 AM [facility] Microbiology ENTIRE PELVIS / Unknown Collection / Unknown 05/02/2015 11:46 AM PRODUCT DEVELOPMENT COORDINATOR 05/02/2015 2:36 PM PRODUCT DEVELOPMENT COORDINATOR Kevin Rosario MD LAB - MICROBIOLO GY ORDERABLES [facility] [address] [place] [address], [facility] [phone] * PT PTT PANEL (05/02/2015 4:49 AM PRODUCT DEVELOPMENT COORDINATOR) PT 11.6 9.5 - 11.6 sec 05/02/2015 5:29 AM [facility] INR 1.1 0.9 - 1.1 05/02/2015 5:29 AM PRODUCT DEVELOPMENT COORDINATOR [facility] PTT 24.6 21.0 - 32.0 sec 05/02/2015 5:29 AM [facility] Blood BLOOD SPECIMEN / Unknown Lab Venipuncture / Unknown 05/02/2015 4:49 AM PRODUCT DEVELOPMENT COORDINATOR 05/02/2015 5:14 AM PRODUCT DEVELOPMENT COORDINATOR Narrative [facility] - 05/02/2015 5:29 AM PRODUCT DEVELOPMENT COORDINATOR Conventional Warfarin Anticoagulant Therapy: INR Reference Range: 2.0-3.0 Intensive Warfarin Anticoagulant Therapy: INR Reference Range: 2.5-3.5 Heparin Therapeutic Range for PTT: 44.4 - 78.3 seconds. Kevin Rosario MD LAB - COAGULATIO N ORDERABLES [facility] [address] [id number] * CT DRAIN PERITON RETRO W CATH (04/29/2015 1:33 PM PRODUCT DEVELOPMENT COORDINATOR) Only the most recent of2 resultswithin the time period is included. Anatomical Region Laterality Modality Computed Tomogra phy Impressions 04/30/2015 10:31 AM PRODUCT DEVELOPMENT COORDINATOR CT-guided transgluteal abscess drain insertion. Narrative 04/30/2015 10:31 AM PRODUCT DEVELOPMENT COORDINATOR CT GUIDED transgluteal abscess drain insertion Supervision of moderate conscious sedation Clinical Indication: Pelvic abscess. Perforated diverticulitis. Physician: Hermelindo Ding M.D. Complications: None. Moderate conscious sedation was monitored by the radiology nursing staff. Total sedation time is 30 minutes. Procedure/Findings: The risks and benefits of the procedure were explained to the patient. The risks include but are not limited to bleeding, infection, liver injury, bowel injury, pain, failed procedure, nondiagnostic result, aspiration, and respiratory depression. The patient was given ample time to ask questions. Following this both written and verbal informed consent was obtained. The patient is placed prone on the CT scan table and targeted CT scanning through the pelvis was performed. A suitable skin entry site is marked. Following sterile prep and administration of 1% lidocaine local anesthesia, a 18-gauge trocar needle was advanced into the pelvic collection via a left transgluteal approach under CT guidance. A wire was passed and permitted to coil within the collection. The tract was dilated to accommodate an 8 Greek drain. The pigtail was formed and locked and secured to the skin with nonabsorbable suture. The samples were sent for Gram stain and culture. The patient tolerated the procedure well and was transferred to routine post procedure monitoring in stable condition. Hermelindo Ding MD CT ORDERABLES * CULTURE WOUND+GRAM STAIN (04/29/2015 1:08 PM PRODUCT DEVELOPMENT COORDINATOR) Only the most recent of2 resultswithin the time period is included. Culture No Growth STACI 05/02/2015 5:59 AM [facility] Gram Stain No organisms seen 05/02/2015 5:59 AM [facility] Gram Stain Moderate White blood cells 05/02/2015 5:59 AM [facility] Microbiology SPECIMEN FROM ABSCESS / Unknown Collection / Unknown 04/29/2015 1:08 PM PRODUCT DEVELOPMENT COORDINATOR 04/29/2015 1:45 PM PRODUCT DEVELOPMENT COORDINATOR Hermelindo Ding MD LAB - MICROBIOLOGY O RDERABLES Performing Organization Address City/[facility] Co de Phone Number [facility] [address] [place] [address], [facility] [phone] * CLOSTRIDIUM DIFFICILE GDH AG + TOXIN A+B (04/29/2015 9:38 AM PRODUCT DEVELOPMENT COORDINATOR) GDH Antigen Negative Negative, Invalid 04/29/2015 8:02 PM [facility] C difficile Toxin A + B Negative Negative, Invalid 04/29/2015 8:02 PM [facility] Interpretation C difficile Negative for toxigenic C. difficile Negative for toxigenic C. difficile 04/29/2015 8:02 PM [facility] Stool STOOL SPECIMEN / Unknown Collection / Unknown 04/29/2015 9:38 AM PRODUCT DEVELOPMENT COORDINATOR 04/29/2015 10:34 AM PRODUCT DEVELOPMENT COORDINATOR Merline Jane MD LAB - MICROBIOLOGY ORDERABLES Performing Organization Address [facility]/ZIP Co de Phone Number [facility] [address] [place] [address], [facility] [phone] * EKG 12-LEAD (04/28/2015 8:26 AM PRODUCT DEVELOPMENT COORDINATOR) Ventricular Rate 107 BPM [facility] MUSE Atrial Rate 107 BPM [facility]USE P-R Interval 128 ms [facility] QRS Duration ms 96 ms [facility] Q-T Interval ms 336 ms [facility] QTC Calculation (Bezet) 448 ms [facility] Calculated P Sullivan 43 degrees [facility] MUSE Calculated R [place] 12 degrees [facility] MUSE Calculated T Sullivan 4 degrees [facility] Interpretation EKG Sinus tachycardia Possible Left atrial enlargement Borderline ECG When compared with ECG of 28-APR-2015 08:25, No significant change was found Confirmed by MD BRIAN, YUDI Scott ([id number]) on 04/29/2015 7:39:32 AM [facility] 04/28/2015 8:26 AM PRODUCT DEVELOPMENT COORDINATOR 04/29/2015 7:39 AM [facility] Kieran Gonzalez MD ECG ORDERABLES [facility] * (ABNORMAL) URINALYSIS ROUTINE AUTO (04/27/2015 11:01 PM PRODUCT DEVELOPMENT COORDINATOR) Color UA [place](A) Straw, Yellow, Dark Yellow 04/27/2015 11:45 PM [facility] Clarity UA Clear 04/27/2015 11:45 PM [facility] Specific [place] UA >1.030(H) 1.005 - 1.030 04/27/2015 11:45 PM [facility] pH UA 6.0 5.0 - 8.0 pH 04/27/2015 11:45 PM [facility] Protein UA 1+(A) Negative 04/27/2015 11:45 PM [facility] Blood UA Negative Negative 04/27/2015 11:45 PM [facility] Leukocyte UA 1+(A) Negative 04/27/2015 11:45 PM [facility] Nitrite UA Positive(A) Negative 04/27/2015 11:45 PM [facility] Glucose UA Negative Negative 04/27/2015 11:45 PM [facility] Ketone UA 3+(A) Negative 04/27/2015 11:45 PM [facility] Bilirubin UA 1+(A) Negative 04/27/2015 11:45 PM [facility] Urobilinogen UA 0.2 0.1 - 1.0 EU/dL 04/27/2015 11:45 PM [facility] WBC UA Auto 0-2 0-2, 2-5 # /hpf 04/27/2015 11:45 PM [facility] RBC UA Auto 2-5 0-2, 2-5 # /hpf 04/27/2015 11:45 PM [facility] Epithelial Cell UA Auto 0-2 0-2, 2-5 # /hpf 04/27/2015 11:45 PM [facility] Urine URINE SPECIMEN OBTAINED BY CLEAN CATCH PROCEDURE / Unknown 04/27/2015 11:01 PM PRODUCT DEVELOPMENT COORDINATOR 04/27/2015 11:34 PM PRODUCT DEVELOPMENT COORDINATOR Kevin Rosario MD LAB - URINALYSIS ORDERABLES [facility] [address] [place] [address] * (ABNORMAL) DIFFERENTIAL MANUAL (04/26/2015 5:12 AM [facility]) WBC Auto 15.5 x10^9/L 04/26/2015 9:26 AM [facility] WBC Corrected 4.4 - 10.7 x10^9/L 04/26/2015 9:26 AM [facility] nRBC /100 WBC 04/26/2015 9:26 AM [facility] Neutrophil % Manual 77(H) 44 - 73 % 04/26/2015 9:26 AM [facility] Lymphocytes % Manual 5(L) 20 - 43 % 04/26/2015 9:26 AM [facility] Monocytes % Manual 5 5 - 13 % 04/26/2015 9:26 AM [facility] Band % Manual 13(H) 0 - 11 % 04/26/2015 9:26 AM [facility] Cells Counted 100 # cells 04/26/2015 9:26 AM [facility] WBC Morph Normal 04/26/2015 9:26 AM [facility] Anisocytosis 1+(A) None 04/26/2015 9:26 AM [facility] Polychromasia 1+(A) None 04/26/2015 9:26 AM [facility] Platelet Estimation Normal 04/26/2015 9:26 AM [facility] Blood BLOOD SPECIMEN / Unknown Lab Venipuncture / Unknown 04/26/2015 5:12 AM PRODUCT DEVELOPMENT COORDINATOR 04/26/2015 5:31 AM PRODUCT DEVELOPMENT COORDINATOR Kevin Rosario MD LAB - HEMATOLOGY ORDERABLES [facility] [address] [place] [id number] * CULTURE BLOOD (04/24/2015 6:09 PM PRODUCT DEVELOPMENT COORDINATOR) Only the most recent of2 resultswithin the time period is included. Culture No Growth Day 5 STACI 04/29/2015 10:00 PM PRODUCT DEVELOPMENT COORDINATOR [facility] Blood PERIPHERAL BLOOD / Unknown Venipuncture / Unknown 04/24/2015 6:09 PM PRODUCT DEVELOPMENT COORDINATOR 04/24/2015 6:13 PM PRODUCT DEVELOPMENT COORDINATOR Moses Remy DO LAB - MICROBIOL OGY ORDERABLES [facility] [address] [place] [address] [phone] Care Teams Cycling Instructor Relationship Specialty Start Date End Date Montrell Garcia MD [address] [place] [phone] PCP - General Family Medicine 08/18/20 Jose Juan Thornton MD [address] [place] [address] [address] [place] [address] Neurology 08/08/16 Jose Read MD [address] [place] [address] [address] [place] [address] Rheumatology 09/19/16
--- OUTSIDE RECORDS SUMMARY | 2024-07-15 16:02 | XMS_ITS | Encounter Summary ---
Author Organization [facility] Address [address] [place] [address] Care Team Providers Care Polisher Dial Name Role Phone Jose Juan Thornton MD Unavailable [phone] Jose Read MD Unavailable Montrell Garcia MD Primary Care Provider [phone] Encounter Details Date Type Department Care Team (Late st Contact Info) Description 08/16/2020 Telephone [facility] [address] [place] [address] Olayinka Razo MD [address] [phone] Social History Tobacco Use Types Packs/Day Years [...] documented as of this encounter Care Teams Polisher Dial Relationship Specialty Start Date End Date Montrell Garcia MD [address] [place] [phone] PCP - General Family Medicine 08/18/20 Jose Juan Thornton MD [address] [facility] [address] [place] [address] Neurology 08/08/16 Jose Read MD [address] [facility] [address] [place] [address] Rheumatology 09/19/16 documented as of this encounter
--- NOTE | 2024-07-15 16:03 | ED_ITS ---
HPI - Eye Problem General Chief complaint: Eye Problems Stated complaint: Something in left eye while picking up a case History of Present Illness HPI Narrative: 34-year-old male presents emergency department for foreign body sensation to his left eye. Patient states around 12 30 he was putting a case of beer on a shelf when he felt as if a foreign body went into his eye. Studies have been having a foreign body sensation since with clear tearing. Denies vision changes. He does not were contacts. Related Data Allergies Allergy/AdvReac Type Severity Reaction Status Date / Time No Known Allergies Allergy Mild Verified 07/15/24 14:13 Review of Systems Review of Systems: All systems reviewed & are unremarkable except as noted in HPI and below PMFSH Past Medical History Medical History Cholecystectomy planned Need for COVID-19 vaccine Screening for malignant neoplasm of prostate Screening for thyroid disorder Screening for thyroid disorder Surgical History Surgical History History of colon resection Family History Family History Father Heart disease Mother Fatty liver Sibling No problems noted. Social History Social History Smoking status: Never smoker Second hand tobacco smoke exposure: Yes Alcohol intake: former Substance use: never Substance use type: does not use Do You Feel Safe in your Home?: Yes Lack of Transportation: No Lack of Food: Never True Current Housing: I Have Housing Concerned About Future Housing: No Difficulty Paying Gas/Electric Bills: No Difficulty Paying for Meds: No Currently Unemployed: No Education: Associate Degree Difficulty w/ Childcare or Family Care: No Living arrangements: with family Additional living arrangements comments: lives with father Occupation/Education: occupation Additional occupation/education comments: [employer] Gender identity (if verbalized by the patient): Male Exam Narrative: GENERAL: Well-appearing, well-nourished, and in no acute distress. HEAD: Normocephalic, atraumatic. EYES: PERRLA and EOMI. Mild injection to the left eye, mild clear tearing. No foreign body visualized. No Fady sign on forcing staining, no corneal abrasions or evidence of ulcer. There is a linear area of increased uptake to the upper palpebral conjunctiva consistent with a conjunctival abrasion. No pain with movement of EOMs. Ocular pressure 18 mmHg ENT: Nares clear, no rhinorrhea or epistaxis. Mucous membranes moist. NECK: Supple. CHEST: Clear to auscultation. No respiratory distress. HEART: Regular rate and rhythm. No murmur heard. Normal peripheral pulses. EXTREMITIES: Normal range of motion. No edema. SKIN: Warm, dry, no rash. NEURO: No focal deficits. Alert and oriented x3 Course Vital Signs Vital signs: Vital Signs Temperature 97.7 F 07/15/24 14:15 Pulse Rate 96 07/15/24 14:15 Respiratory Rate 16 07/15/24 14:15 Blood Pressure 120/81 07/15/24 14:15 Pulse Oximetry 99 07/15/24 14:15 Oxygen Delivery Room Air 07/15/24 14:15 Temperature 97.7 F 07/15/24 14:15 Pulse Rate 96 07/15/24 14:15 Respiratory Rate 16 07/15/24 14:15 Blood Pressure 120/81 07/15/24 14:15 Pulse Oximetry 99 07/15/24 14:15 Oxygen Delivery Room Air 07/15/24 14:15 MDM - Eye Problem MDM Narrative Medical decision making narrative: 44-year-old male presents emergency department for foreign body sensation to his left eye for the past few hours. No direct injury or trauma but was loading a case of beer on to a florin show prior to this sensation. See HPI for further history. Vitals are stable. Exam is significant for the above. Notably patient is found to have evidence of the upper palpebral conjunctival abrasion. There is no foreign bodies visualized, no corneal abrasions or ulcerations, negative Fady sign. Pressures are normal at 80 mmHg. Patient was updated on results and advised to follow up with Ophthalmology. He was started on erythromycin ointment, encouraged warm compresses, Tylenol/ibuprofen as needed for pain. Discussed return precautions. He is agreeable with the plan verbalized understanding. Discharged in stable condition. Discharge Plan Discharge Clinical Impression: Abrasion of conjunctiva, left Qualifiers: Encounter type: initial encounter Qualified Code(s): S05.02XA - Injury of conjunctiva and corneal abrasion without foreign body, left eye, initial encounter Patient Disposition: Home, Self-Care Condition: Stable Instructions: Antibiotic Form Additional Instructions: You were evaluated in the emergency department for foreign body sensation in your eye. You were found to have a abrasion to the inner eyelid which is likely the source of your symptoms. Please use the antibiotic ointment as directed and follow-up with the hospital coordinator at [facility] at [phone]. Return to the emergency department if you develop vision changes, fever, worsening redness or pain, or other concerning symptoms. Take Tylenol ibuprofen as needed for pain and use warm compresses for comfort. Patient Language: Mosotho Prescriptions: New erythromycin 5 mg/gram (0.5 %) ointment 0.5 inch LEFT EYE QID 7 Days Qty: 3.5 0RF No Action alprazolam 0.5 mg tablet 0.5 mg PO DAILY PRN (Reason: anxiety) Qty: 90 0RF Jardiance 25 mg tablet 25 mg PO DAILY Qty: 30 5RF Janumet 50-500 mg tablet 1 tablet PO BID Qty: 60 5RF Follow-up/Referrals: Montrell Garcia MD [Primary Care Provider] -
--- OUTSIDE RECORDS SUMMARY | 2024-07-15 17:35 | XMS_ITS | Clinical Summary ---
Author Organization 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
--- OUTSIDE RECORDS SUMMARY | 2024-07-15 17:35 | XMS_ITS | Encounter Summary ---
Author Organization [facility] Address [address] [place] [address] Care Team Providers Care Arm Maker Name Role Phone Jose Juan Thornton MD Unavailable [phone] Jose Read MD Unavailable Montrell Garcia MD Primary Care Provider [phone] Encounter Details Date Type Department Care Team (Late st Contact Info) Description 08/16/2020 Telephone [facility] [address] [place] [address] Olayinka Razo MD [address] [phone] Social History Tobacco Use Types Packs/Day Years [...] documented as of this encounter Care Teams Arm Maker Relationship Specialty Start Date End Date Montrell Garcia MD [address] [place] [phone] PCP - General Family Medicine 08/18/20 Jose Juan Thornton MD [address] [facility] [address] [place] [address] Neurology 08/08/16 Jose Read MD [address] [facility] [address] [place] [address] Rheumatology 09/19/16 documented as of this encounter
--- OUTSIDE RECORDS SUMMARY | 2024-07-15 17:35 | XMS_ITS | Encounter Summary ---
Author Organization [facility] Address [address] [place] [address] Care Team Providers Care Warehouse Packer Name Role Phone Jose Juan Thornton MD Unavailable [phone] Jose Read MD Unavailable Montrell Garcia MD Primary Care Provider [phone] Encounter Details Date Type Department Care Team (Late st Contact Info) Description 07/12/2020 Telephone [facility] [address] [place] [address] Olayinka Razo MD [address] [id number] Social History Tobacco Use Types Packs/Day Years [...] documented as of this encounter Care Teams Warehouse Packer Relationship Specialty Start Date End Date Montrell Garcia MD [address] [place] [id number] PCP - General Family Medicine 08/18/20 Jose Juan Thornton MD [address] [facility] [address] [place] [address] Neurology 08/08/16 Jose Read MD [address] [facility] [address] [place] [address] Rheumatology 09/19/16 documented as of this encounter
--- OUTSIDE RECORDS SUMMARY | 2024-07-15 17:35 | XMS_ITS | Clinical Summary ---
Author Organization [facility] Address [address] [facility] [place] [address] Care Team Providers Care Pace Analyst Name Role Phone Jose Juan Thornton MD Unavailable Jose Read MD Unavailable Montrell Garcia MD Primary Care Provider [phone] Source Comments [facility],non-owned Affiliates and Associated Physician Practices is amultiple site organization consisting of ambulatory clinics and hospital sitesin [place], [place], [place] and [place]. This disclosure is being madepursuant to the Care Everywhere program and may not contain all information available regarding this patient. Last updated 18.[facility] Allergies No known active allergies Medications * [...] Montgomery, GIANCARLO Medical Devices Implanted Type Area Dental Technician Apprentice Device Identifier Shelf Expiration Date Model / Serial / Lot Mesh Srg Bard [id number] Sq Mfl Sft Ltwt Implanted:Qty: 1 on 08/21/2020 by Olayinka Razo MD at [facility] [employer] 04/01/2025 [id number] / / [id number] Explanted Type Area Dental Technician Apprentice Device Identifier Shelf Expiration Date Model / Serial / Lot Mesh Srg Bard 6x6in Sft Smth Rnd Crnr Lg Explanted:Qty: 1 on 08/21/2020 at [facility] [employer] 09/29/2024 [id number] / / [id number] Procedures Procedure Name Priority Date/Time Associated Diagnosis Comments BASIC METABOLIC PANEL (CALCIUM TOTAL) AM Draw 08/23/2020 2:58 AM CDT Incisional hernia, without obstruction or gangrene HEMOGLOBIN A1C Routine 06/24/2017 9:03 AM REJECT OPENER AND FILLER Diabetes mellitus screening ENDOSCOPY, COLON, DIAGNOSTIC Routine [...] >60 mL/min/1.7 3m2 08/23/2020 3:52 AM CDT [facility] Blood BLOOD SPECIMEN / Unknown Lab Venipuncture / Unknown 08/23/2020 2:58 AM CDT 08/23/2020 3:20 AM CDT Olayinka Razo MD LAB - CHEMISTRY [place] [facility] [address] [place] [id number] * (ABNORMAL) HEMOGLOBIN A1C (06/24/2017 9:03 AM REJECT OPENER AND FILLER) Hemoglobin A1c 9.8(H) 4.2 - 6.3 % [facility] ACCOUNT BILL Comment:AVERAGE GLUCOSE MG/D L BLOOD 235 mg/dL Whole Blood BLOOD SPECIMEN WITH EDTA / Unknown 06/24/2017 9:03 AM REJECT OPENER AND FILLER 06/24/2017 Narrative Resulting Agency Comment [facility] [address] [facility] [phone] Rea Rajan MD LAB - CARE COMPANION RY ORDERABLES Performing Organization Address City/[facility]/ZIP Co de Phone Number [facility] ACCOUNT BILL [address] [place] [address] * ENDOSCOPY, COLON, DIAGNOSTIC (06/05/2016) Gordon Dudley [...] 6:50 PM 05/02/2015 7:39 PM Care Teams Pace Analyst Relationship Specialty Start Date End Date Montrell Garcia MD [address] [place] [phone] PCP - General Family Medicine 08/18/20 Jose Juan Thornton MD [address] [place] [address] Neurology 08/08/16 Jose Read MD [address] [place] [address] Rheumatology 09/19/16
--- OUTSIDE RECORDS SUMMARY | 2024-07-15 17:35 | XMS_ITS | Referral Summary ---
Author Organization [facility] Address [address] [facility] [place] [address] Care Team Providers Care Recovery Auditor Name Role Phone Jose Juan Thornton MD Unavailable [phone] Jose Read MD Unavailable Montrell Garcia MD Primary Care Provider [phone] Source Comments [facility],non-owned Affiliates and Associated Physician Practices is amultiple site organization consisting of ambulatory clinics and hospital sitesin [place], [place], [place] and [place]. This disclosure is being madepursuant to the Care Everywhere program and may not contain all information available regarding this patient. Last updated 18.[facility] Allergies No known active allergies Medications [...] Montgomery MA Medical Devices Implanted Type Area Deputy Sheriff Chief Device Identifier Shelf Expiration Date Model / Serial / Lot Mesh Srg Bard [id number] Sq Mfl Sft Ltwt Implanted:Qty: 1 on 08/21/2020 by Olayinka Razo MD at [facility] [employer]domen [employer] 04/01/2025 [id number] / / [id number] Explanted Type Area Deputy Sheriff Chief Device Identifier Shelf Expiration Date Model / Serial / Lot Mesh Srg Bard 6x6in Sft Smth Rnd Crnr Lg Explanted:Qty: 1 on 08/21/2020 at [facility] [employer] 09/29/2024 [id number] / / [id number] Procedures Procedure Name Priority Date/Time Associated Diagnosis Comments BASIC METABOLIC PANEL (CALCIUM TOTAL) AM Draw 08/23/2020 2:58 AM CDT Incisional hernia, without obstruction or gangrene HEMOGLOBIN A1C Routine 06/24/2017 9:03 AM 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 BUN 15 8.9 - 20.6 mg/dL 08/23/2020 3:52 AM CDT [facility] Creatinine 0.84 0.72 - 1.25 mg/dL 08/23/2020 3:52 AM CDT [facility] eGFR by MDRD >60 >60 mL/min/1.7 3m2 08/23/2020 3:52 AM CDT [facility] eGFR by MDRD >60 >60 mL/min/1.7 3m2 08/23/2020 3:52 AM CDT [facility] Blood BLOOD SPECIMEN / Unknown Lab Venipuncture / Unknown 08/23/2020 2:58 AM CDT 08/23/2020 3:20 AM CDT Olayinka Razo MD LAB - CHEMISTRY ORDMina GORDILLO [facility] [address] [place] [address] * (ABNORMAL) HEMOGLOBIN A1C (06/24/2017 9:03 AM DOUGHNUT BATTER MIXER) Hemoglobin A1c 9.8(H) 4.2 - 6.3 % [facility] ACCOUNT BILL Comment:AVERAGE GLUCOSE MG/D L BLOOD 235 mg/dL Whole Blood BLOOD SPECIMEN WITH EDTA / Unknown 06/24/2017 9:03 AM DOUGHNUT BATTER MIXER 06/24/2017 Narrative Resulting Agency Comment [facility] [address] [facility] [phone] Rea Rajan MD LAB - FIELD EXAMINER RY ORDERABLES [facility] ACCOUNT BILL [address] [place] [address] * ENDOSCOPY, COLON, DIAGNOSTIC (06/05/2016) Gordon Dudley [...] 6:50 PM 05/02/2015 7:39 PM Care Teams Recovery Auditor Relationship Specialty Start Date End Date Montrell Garcia MD [address] [place] [address] PCP - General Family Medicine 08/18/20 Jose Juan Thornton MD [address] [facility] [address] [place] [address] Neurology 08/08/16 Jose Read MD [address] [place] [address] Rheumatology 09/19/16
--- OUTSIDE RECORDS SUMMARY | 2024-07-15 17:35 | XMS_ITS | Patient Health Summary ---
Author Organization [facility] Address [address] [facility] [place] [address] Care Team Providers [facility] Admissions Clerk Name Role Phone Jose Juan Thornton MD Unavailable [phone] Jose Read MD Unavailable Montrell Garcia MD Primary Care Provider [phone] Note from [facility],non-owned Affiliates and Associated Physician Practices is amultiple site organization consisting of ambulatory clinics and hospital sitesin [place], [place], [place]. This disclosure is being madepursuant to the Care Everywhere program and may not contain all information available regarding this patient. Last updated 18.[facility] Allergies No known active allergies Medications [...] PM CDT Medical Devices Implanted Type Area Records Officer Device Identifier Shelf Expiration Date Model / Serial / Lot Mesh Srg Bard [id number] Sq Mfl Sft Ltwt Implanted:Qty: 1 on 08/21/2020 by Olayinka Razo MD at [facility] Abdomen [employer] 04/01/2025 [id number] / / [id number] Explanted Type Area Records Officer Device Identifier Shelf Expiration Date Model / Serial / Lot Mesh Srg Bard 6x6in Sft Smth Rnrosalio Hoffman Lg Explanted:Qty: 1 on 08/21/2020 at [facility] [employer]domen [employer] 09/29/2024 [id number] / / [id number] Procedures * DERMATOPATHOLOGY(Performed 04/24/2022) Performed for Neoplasm [...] 04/24/2015) Results * DERMATOPATHOLOGY (04/24/2022 12:00 AM DEHYDRATOR) Case Report Dermatopathology Report Case: [id number] Authorizing Provider: Dejah Domingo, Collected: 04/24/2022 12:[address] ENGINEER-CONTINUOUS DRIER HELPER Ordering Location: [facility] DermPath Lab Received: 04/30/2022 12:41 PM Pathologist: Neyda Chu MD Specimen: Skin, Right Scalp 2 12:13 PM DEHYDRATOR DERMATOPATHOLOGY LABORATORY Final Diagnosis Specimen A. SKIN, Right Scalp: BASAL CELL CARCINOMA, NODULAR TYPE (C44.41) 2 12:13 PM [facility] DERMATOPATHOLOGY LABORATORY Clinical History BCC 2 12:13 PM [facility] DERMATOPATHOLOGY LABORATORY Gross Description Specimen A: Received is one formalin filled container labeled with the patient's name and designated Right Scalp. The specimen consists of a shave biopsy measuring 8x7x1 mm. Jar 0. 2 12:13 PM [facility] DERMATOPATHOLOGY LABORATORY Microscopic Description Specimen A. SKIN, Right Scalp: Within the dermis there are aggregates of basaloid cells with a high nuclear to cytoplasmic ratio and peripheral palisading. 2 12:13 PM [facility] DERMATOPATHOLOGY LABORATORY Disclaimer An external and internal positive and negative controls are appropriate for the histochemical, immunohistochemical and immunofluorescence stain(s) in this case (if any), except where stated explicitly. The performance characteristics of the stain(s) cited in this report were developed and its performance characteristic determined by the Dermatopathology Laboratory at [facility], directed by Dr. Carlos Maurice. These tests need not be, and therefore are not, approved by the [place] Food and Drug Administration. The tests are used for clinical purposes. Billing Codes Specimen Charges Stain Charges 74138 1 2 12:13 PM [facility] DERMATOPATHOLOGY LABORATORY Embedded Images 2 12:13 PM [facility] DERMATOPATHOLOGY LABORATORY Pathology/Cytolog y TISSUE SPECIMEN FROM SKIN / Unknown 04/24/2022 04/30/2022 12:41 PM DEHYDRATOR Dejah Sanchez SENIOR RD ENGINEER-CONTINUOUS DRIER HELPER LAB - PATH OLOGY/CYTOLOGY ORDERABLES DERMATOPATHOLOGY LABORATORY [facility] - Department of Dermatology [address], [address] [phone] * CARDIAC RHYTHM STRIP ORDER (08/25/2020 10:27 AM CDT) Only the most recent of4 resultswithin the time period is included. Narrative 08/25/2020 10:27 AM CDT Ordered by an unspecified provider. Scanned Document CARDIAC SERVICES ORD ERABLES * GLUCOSE - POINT OF CARE (08/23/2020 7:49 AM CDT) Only the most recent of26 resultswithin the time period is included. Pathologist [facility] Glucose WB/POC 97 70 - 106 mg/dL 08/23/2020 8:51 PM CDT [facility] Specimen Type Arterial/C apillary 08/23/2020 8:51 PM CDT [facility] Blood BLOOD SPECIMEN / Unknown 08/23/2020 7:49 AM CDT 08/23/2020 8:51 PM CDT Olayinka Razo MD LAB - POINT OF CARE ORDERABLES [facility] [address] [place] [address] * (ABNORMAL) CBC W/O DIFFERENTIAL (08/23/2020 2:58 AM CDT) Only the most recent of2 resultswithin the time period is included. [facility] WBC 9.6 4.4 - 10.7 x10E9/L 08/23/2020 3:38 AM CDT [facility] RBC 4.78 3.80 - 5.40 x10E12/L 08/23/2020 3:38 AM CDT [facility] Hemoglobin 15.7 12.0 - 17.6 gm/dL 08/23/2020 3:38 AM CDT [facility] Hematocrit 47.4 35.2 - 51.7 % 08/23/2020 3:38 AM [facility] MCV 99.2(H) 80.7 - 98.3 fl 08/23/2020 3:38 AM CDT [facility] MCH 32.8 26.7 - 34.0 pg 08/23/2020 3:38 AM CDT [facility] MCHC 33.1 30.8 - 35.9 gm/dL 08/23/2020 3:38 AM CDT [facility] Platelet Count 226 153 - 416 x10E9/L 08/23/2020 3:38 AM CDT [facility] RDW-CV 12.8 12.1 - 14.9 % 08/23/2020 3:38 AM CDT [facility] MPV 11.3 9.4 - 12.9 fl 08/23/2020 3:38 AM CDT [facility] Blood BLOOD SPECIMEN / Unknown Lab Venipuncture / Unknown 08/23/2020 2:58 AM CDT 08/23/2020 3:20 AM CDT Olayinka Razo MD LAB - HEMATOLOGY ORD ERABLES [facility] [address] [place] [address] * (ABNORMAL) BASIC METABOLIC PANEL (CALCIUM TOTAL) (08/23/2020 2:58 AM CDT) Only the most recent of11 resultswithin the time period is included. [facility] Glucose 90 70 - 105 mg/dL 08/23/2020 3:52 AM CDT [facility] Sodium 138 136 - 145 mmol/L 08/23/2020 3:52 AM CDT [facility] Potassium 4.1 3.5 - 5.1 mmol/L 08/23/2020 3:52 AM CDT [facility] Chloride 104 98 - 107 mmol/L 08/23/2020 3:52 AM CDT [facility] CO2 27 23 - 31 mmol/L 08/23/2020 3:52 AM CDT [facility] Calcium 8.5 8.4 - 10.4 mg/dL 08/23/2020 3:52 AM CDT [facility] Anion Gap 7(L) 8 - 18 mmol/L 08/23/2020 3:52 AM CDT [facility] Comment:Attention clinician: Reference Range change. BUN 15 8.9 - 20.6 mg/dL 08/23/2020 3:52 AM CDT [facility] Creatinine 0.84 0.72 - 1.25 mg/dL 08/23/2020 3:52 AM CDT [facility] eGFR by MDRD >60 >60 mL/min/1.7 3m2 08/23/2020 3:52 AM CDT [facility] eGFR by MDRD >60 >60 mL/min/1.7 3m2 08/23/2020 3:52 AM CDT [facility] Blood BLOOD SPECIMEN / Unknown Lab Venipuncture / Unknown 08/23/2020 2:58 AM CDT 08/23/2020 3:20 AM CDT Olayinka Razo MD LAB - CHEMISTRY LISA GORDILLO Performing Organization Address [facility] Co de Phone Number [facility] [address] [place] [address] [phone] * PHOSPHORUS BLOOD (08/23/2020 2:58 AM CDT) Only the most recent of5 resultswithin the time period is included. Phosphorus 2.8 2.3 - 4.7 mg/dL 08/23/2020 3:52 AM CDT [facility] Blood BLOOD SPECIMEN / Unknown Lab Venipuncture / Unknown 08/23/2020 2:58 AM CDT 08/23/2020 3:20 AM CDT Olayinka Razo MD LAB - CHEMISTRY LISA GORDILLO Performing Organization Address [facility] de Phone Number [facility] [address] [place] [address] [phone] * MAGNESIUM BLOOD (08/23/2020 2:58 AM CDT) Only the most recent of7 resultswithin the time period is included. Magnesium 2.0 1.6 - 2.6 mg/dL 08/23/2020 3:52 AM CDT [facility] Blood BLOOD SPECIMEN / Unknown Lab Venipuncture / Unknown 08/23/2020 2:58 AM CDT 08/23/2020 3:20 AM CDT Olayinka Razo MD LAB - CHEMISTRY LISA GORDILLO Performing Organization Address [facility] Co de Phone Number [facility] [address] [place] [address] [phone] * ETT LINE PERFORMABLE (08/21/2020 2:28 PM CDT) Narrative Kiersten Coley APRN-FOLDER GLUER OPERATOR - 08/21/2020 2:28 PM CDT Kiersten Coley APRN-FOLDER GLUER OPERATOR 08/21/2020 2:28 PM Endotracheal Tube Placement: Patient Location: OR. Intubation Event Date/Time: 08/21/2020 1:16 PM Procedure: intubation ([id number]). Procedure Section: Sedation: under general anesthesia. Indications [...] included. Case Report Surgical Pathology Report Case: [id number] Authorizing Provider: Olayinka Razo MD Collected: 08/21/2020 01:46 PM Ordering Location: [facility] Received: 08/21/2020 03:50 PM Pathologist: Kvng Garcia MD Specimen: Tissue, Abdominal wall skin 08/22/2020 11:47 AM CDT [facility] Final Diagnosis Skin, abdominal wall, excision: Dermal fibrosis with cicatrix formation. 08/22/2020 11:47 AM CDT [facility] Gross Description The requisition and specimen are identified with patient's name and date of . Received in formalin, specimen A, abdominal wall skin is an ellipse of jin, wrinkled skin measuring 20.5 x 2.3 cm, excised to a depth of 1.5 cm. Sectioning shows jin to pink-jin, fibroadipose tissue cut surfaces. Assistant Commissioner sections submitted in cassette A1. LJ 08/22/2020 11:47 AM CDT [facility] Microscopic Description A microscopic examination was performed. 08/22/2020 11:47 AM CDT [facility] Disclaimer All histochemical and/or immunohistochemical results are interpreted with controls that demonstrate appropriate staining reactions before reporting results. Note on use of immunocytochemistry reagents: This test was developed and its performance characteristic determined by [facility], Department of Laboratory Medicine. It [...] interpreted with caution. 08/22/2020 11:47 AM CDT [facility] Embedded Images 08/22/2020 11:47 AM CDT [facility] Pathology/Cytolo gy TISSUE SPECIMEN / Unknown 08/21/2020 1:46 PM CDT 08/21/2020 3:50 PM CDT Comment:Pre-op diagnosis: Diagnosis unknown [R69] Olayinka Razo MD LAB - PATHOLOGY/CYTO LOGY ORDERABLES Performing Organization Address City/State/[facility] Co de Phone Number [facility] [address] [place], [place] [phone] * SARS-COV-2 (COVID-19) PRE-SURGICAL/PROCEDURE (08/18/2020 1:16 PM CDT) COVID-19 PCR Not detected Not detected 08/19/2020 4:19 AM CDT [facility] MICROBIOLOGY Microbiology SPECIMEN FROM NASOPHARYNGEAL STRUCTURE / Unknown Collection / Unknown 08/18/2020 1:16 PM CDT 08/18/2020 1:22 PM CDT Narrative [facility] MICROBIOLOGY - 08/19/2020 4:19 AM CDT This Real Time RT-PCR assay was developed and its performance characteristics determined by [facility]biology Laboratory. This test has been [...] Razo MD LAB - MICROBIOLOGY O RDERABLES [facility] MICROBIOLOG[facility] [address] [phone] * (ABNORMAL) HEMOGLOBIN A1C (06/24/2017 9:03 AM DEHYDRATOR) Only the most recent of2 resultswithin the time period is included. Hemoglobin A1c 9.8(H) 4.2 - 6.3 % [facility] ACCOUNT BILL Comment:AVERAGE GLUCOSE MG/D L BLOOD 235 mg/dL Whole Blood BLOOD SPECIMEN WITH EDTA / Unknown 06/24/2017 9:03 AM DEHYDRATOR 06/24/2017 Narrative Resulting Agency Comment [facility] [address] [facility] [phone] Rea Rajan MD LAB - POLICY VALUE CALCULATOR RY ORDERABLES [facility] ACCOUNT BILL [address] [place] [address] * (ABNORMAL) COMPREHENSIVE METABOLIC PANEL (06/24/2017 9:03 AM DEHYDRATOR) Only the most recent of10 resultswithin the [...] BLOOD SPECIMEN / Unknown 06/24/2017 9:03 AM DEHYDRATOR 06/24/2017 Narrative Resulting Agency Comment [facility] [address] [place] [address] [phone] Rea Rajan MD LAB - POLICY VALUE CALCULATOR RY ORDERABLES [facility] ACCOUNT BILL [address] [place] [address] * (ABNORMAL) LIPID PROFILE (06/24/2017 9:03 AM DEHYDRATOR) Cholesterol 185 <200 mg/dL [facility] ACCOUNT BILL Triglycerides 163(H) <150 mg/dL [facility] ACCOUNT BILL HDL Cholesterol 51 >40 mg/dL [facility] ACCOUNT BILL VLDL Calculated 33(H) <=30 mg/dL [facility] ACCOUNT BILL LDL Calculated 101 <130 mg/dL [facility] ACCOUNT BILL Blood BLOOD SPECIMEN / Unknown 06/24/2017 9:03 AM DEHYDRATOR 06/24/2017 Narrative Resulting Agency Comment [facility] [address] [facility] [phone] Rea Rajan MD LAB - POLICY VALUE CALCULATOR RY ORDERABLES Performing Organization Address City/[facility]/ZIP Co de Phone Number [facility] ACCOUNT [place] [address] * LYME DISEASE AB IGG WB (02/17/2017 [...] exposure to other spirochetes. Test Performed at: [facility] [address] [place] [address] BERNADETTE GARCIA DO,MPH Blood BLOOD SPECIMEN / Unknown 02/17/2017 1:03 PM CDT 02/17/2017 1:04 PM CDT Kevin Verma MD LAB - SEROLOGY ORDER JACQUELINE Performing Organization Address City/[facility]/ZIP Co de Phone Number [facility] [address] [place] [address] * GROSS EXAM PATHOLOGY (STL) (12/25/2016 8:08 AM CDT) Case Report Surgical Pathology Report Case: [id number] Authorizing Provider: Kwesi Rausch MD Collected: 12/25/2016 08:08 AM Ordering Location: [facility] Received: 12/25/2016 09:01 AM Pathologist: Kimberly Gonsalves MD Specimen: Muscle Biopsy, Right Quadricep Muscle Biopsy 01/07/2017 9:52 PM CDT [facility] Addendum 1 The muscle biopsy was sent to [facility] for further evaluation. The results are as follows: Interpretation :Hypertrophy of type II muscle fibers suggests increased usage. There is no evidence of a myopathy. Type II muscle fiber predominance has no strong clinical correlation. Please see scanned report for further details. 01/07/2017 9:52 PM [facility] Addendum electronically signed by Kimberly Gonsalves MD on 01/07/2017 at 9:52 PM Final Diagnosis Quadriceps muscle, right, biopsy: - Grossly consistent with muscle (see gross description) - Sent to [facility] for further evaluation 01/07/2017 9:52 PM [facility] Clinical History Preop diagnosis: Q99.8 01/07/2017 9:52 PM [facility] Gross Description Specimen is received fresh, labeled with the patient's name, Pilcic, Ac, and right quadriceps muscle consists of a portion of red tissue, grossly consistent with skeletal muscle which is in a plastic muscle clamp and wrapped in saline-soaked gauze. The muscle tissue measures 2.5 x 1.5 x 0.5 cm. The specimen is forwarded in its entirety to [facility] for further evaluation. PATRICE/johnathan 01/07/2017 9:52 PM [facility] Microscopic Description None. 01/07/2017 9:52 PM [facility] Embedded Images 01/07/2017 9:52 PM [facility] Pathology/Cytolo gy MUSCLE BIOPSY SPECIMEN / Unknown 12/25/2016 8:08 AM CDT 12/25/2016 9:01 AM CDT Kwesi Rausch MD LAB - PATHOLOGY/CYTO LOGY ORDERABLES [facility] [address] [address] * [...] CDT 12/03/2016 Narrative Resulting Agency Comment [facility] [address] [facility] [phone] Jose Read MD LAB - CHEMISTRY LISA GORDILLO Performing Organization Address City/[facility]/ZIP Co de Phone Number [facility] ACCOUNT BILL [address] [place] [address] * RPR (09/23/2016 3:29 PM CDT) RPR Non Reactive Non Reactive [facility] ACCOUNT BILL Blood BLOOD SPECIMEN / Unknown 09/23/2016 3:29 PM CDT 09/23/2016 Narrative Resulting Agency Comment [facility] [address] [place] [address] [phone] Jose Read MD LAB - CHEMISTRY LISA GORDILLO Performing Organization Address City/[facility]/ZIP Co de Phone Number [facility] ACCOUNT BILL [address] [place] [address] * (ABNORMAL) CK BLOOD (09/23/2016 3:26 PM CDT) CK 388(H) 35 - 232 U/L [facility] ACCOUNT BILL Blood BLOOD SPECIMEN / Unknown 09/23/2016 3:26 PM CDT 09/23/2016 Narrative Resulting Agency Comment [facility] [address] [place] [address] [phone] Jose Read MD LAB - CHEMISTRY LISA GORDILLO Performing Organization Address City/[facility]/ZIP Co de Phone Number [facility] ACCOUNT BILL [address] [place] [address] * (ABNORMAL) MYOSITIS ANTIBODY PANEL COMPREHENSIVE (09/23/2016 [...] and performance parameters have been validated by [employer] This test has not been approved by the U.S. Food and Drug Administration (FDA); however, FDA approval is not required for clinical use. It is not intended that clinical diagnosis and patient management decisions be made using these results alone. This test has been validated using serum samples. The director of gift planning has not determined the efficacy of this test when performed on CSF, plasma, joint or pleural fluid specimens. The performance characteristics of this test were determined by [employer] PL-12 Positive(A) [facility] ACCOUNT BILL Comment: [...] developed and its performance characteristics determined by [employer]. It has not been cleared or approved by the U.S. Food and Drug administration. Blood BLOOD SPECIMEN / Unknown 09/23/2016 3:24 PM CDT 09/23/2016 Narrative Resulting Agency Comment [facility] [address] [place] [address] [phone] Jose Read MD LAB - CHEMISTRY ORDE RAND Performing Organization Address [facility] Co de Phone Number [facility] ACCOUNT BILL [address] [place] [address] * LYME DISEASE AB IGM + TOTAL RFLX WB (POREFLAB) (09/23/2016 3:24 PM CDT) Pathologist [facility] Lyme Disease Antibody IgG/IgM <0.91 0.00 - [...] CDT 09/23/2016 Narrative Resulting Agency Comment [facility] [address] [facility] [phone] Jose Read MD LAB - SEROLOGY ORDER JACQUELINE Performing Organization Address City/[facility] Co de Phone Number [facility] ACCOUNT BILL [address] [place] [address] * IMMUNOFIXATION (09/23/2016 3:24 PM CDT) Immunofixation Result [facility] ACCOUNT BILL Comment:No monoclonality det ected. IgG Quantitative 976 700 - 1,600 mg/dL [facility] ACCOUNT BILL IgA Quantitative 213 90 - 386 mg/dL [facility] ACCOUNT BILL IgM Quantitative 157 20 - 172 mg/dL [facility] ACCOUNT BILL Blood BLOOD SPECIMEN / Unknown 09/23/2016 3:24 PM CDT 09/23/2016 Narrative Resulting Agency Comment [facility] [address] [facility] [phone] Jose Read MD LAB - CHEMISTRY LISA GORDILLO [facility] ACCOUNT BILL [address] [place] [address] * ANCA VASCULITIS PANEL (09/23/2016 3:24 PM CDT) Anti-myeloperoxid ase (MPO) Antibody <9.0 0.0 - 9.0 U/mL [facility] ACCOUNT BILL Anti-proteinase 3 (TX-3) Abs <3.5 0.0 - 3.5 U/mL [facility] [...] up testing of positive sera with both TX-3 and MPO-ANCA enzyme immunoassays. As many as [...] CDT 09/23/2016 Narrative Resulting Agency Comment [facility] [address] [facility] [phone] Jose Read MD LAB - CHEMISTRY LISA GORDILLO Performing Organization Address City/[facility]/ZIP Co de Phone Number [facility] ACCOUNT BILL [address] [place] [address] * C-REACTIVE PROTEIN (09/23/2016 3:24 PM CDT) Only the most recent of2 resultswithin the time period is included. C-Reactive Protein <0.29 <0.30 mg/dL [facility] ACCOUNT BILL Blood BLOOD SPECIMEN / Unknown 09/23/2016 3:24 PM CDT 09/23/2016 Narrative Resulting Agency Comment [facility] [address] [place] [address] [phone] Jose Read MD LAB - CHEMISTRY LISA GORDILLO Performing Organization Address [facility] Co de Phone Number [facility] ACCOUNT BILL [address] [place] [address] * SED RATE WESTERGREN (09/23/2016 3:24 PM CDT) Only the most recent of2 resultswithin the time period is included. Erythrocyte Sedimentation Rate Westergren 9 0 - 15 mm/hr [facility] ACCOUNT BILL Blood BLOOD SPECIMEN / Unknown 09/23/2016 3:24 PM CDT 09/23/2016 Narrative Resulting Agency Comment [facility] [address] [place] [address] [phone] Jose Read MD LAB - HEMATOLOGY ORD ERABLES Performing Organization Address City/[facility] Co de Phone Number [facility] ACCOUNT BILL [address] [place] [address] * PROTEIN ELECTROPHORESIS BLOOD (09/23/2016 3:24 PM CDT) Protein Total 7.1 6.0 - 8.5 g/dL [facility] ACCOUNT BILL Albumin 4.1 2.9 - 4.4 g/dL [facility] ACCOUNT BILL Alpha-1 Globulin 0.2 0.0 - 0.4 g/dL [facility] ACCOUNT BILL Cqetj-7-Voynxsyc 0.6 0.4 - 1.0 g/dL [facility] ACCOUNT [...] scan will follow via computer, mail, or honing job setter delivery. P E Interpretation, S [facility] ACCOUNT BILL Comment: The SPE pattern appears essentially unremarkable. Evidence of monoclonal protein is not apparent. Blood BLOOD SPECIMEN / Unknown 09/23/2016 3:24 PM CDT 09/23/2016 Narrative Resulting Agency Comment [facility] [address] [facility] [phone] Jose Read MD LAB - CHEMISTRY LISA GORDILLO [facility] Organization Address City/State/ZIP Co de Phone Number [facility] ACCOUNT BILL [address] [place] [address] * MRI BRAIN WITH AND WITHOUT CONTRAST [...] Jose Juan Thornton MD Sex: Male ID#: [id number] Ref Phys: Norberto Manzano MD : 1980 Date: 08/20/2016 Border Patrol Agent: Janes Solares Patient Complaints: The patient is [...] CDT 08/20/2016 Narrative Resulting Agency Comment [facility] [address] [phone] Jose Juan Thornton MD LAB - CHEMISTRY LISA GORDILLO Performing Organization Address City/[facility] Co de Phone Number [facility] ACCOUNT BILL [address] [place] [address] * VITAMIN B6 (08/20/2016 4:22 PM CDT) Vitamin B6 10.8 5.3 - 46.7 ug/L [facility] ACCOUNT BILL Blood BLOOD SPECIMEN / Unknown 08/20/2016 4:22 PM CDT 08/20/2016 Narrative Resulting Agency Comment [facility] [address] [phone] Jose Juan Thornton MD LAB - CHEMISTRY LISA GORDILLO Performing Organization Address City/[facility] Co de Phone Number [facility] ACCOUNT BILL [address] [place] [address] * CULTURE URINE (07/09/2016 4:37 PM DEHYDRATOR) Only the most recent of2 resultswithin the time period is included. Urine Culture Routine Final report [facility] ACCOUNT BILL Result 1 No growth [facility] ACCOUNT BILL Urine URINE SPECIMEN OBTAINED BY CLEAN CATCH PROCEDURE / Unknown 07/09/2016 4:37 PM DEHYDRATOR 07/09/2016 Narrative Resulting Agency Comment [facility] [address] [facility] [phone] Rea Rajan MD LAB - MICROBI OLOGY ORDERABLES Performing Organization Address [facility] Co de Phone Number [facility] ACCOUNT BILL [address] [place] [address] * PROSTATE SPECIFIC ANTIGEN SCREEN (07/09/2016 2:42 PM DEHYDRATOR) PSA 0.73 0.00 - 4.00 ng/mL [facility] ACCOUNT BILL Blood BLOOD SPECIMEN / Unknown 07/09/2016 2:42 PM DEHYDRATOR 07/09/2016 Narrative Resulting Agency Comment [facility] [address] [facility] [phone] Rae Rajan MD LAB - POLICY VALUE CALCULATOR RY ORDERABLES Performing Organization Address City/St. [facility]/ZIP Co de Phone Number [facility] ACCOUNT BILL [address] [place] [address] * URINALYSIS AUTO - POINT OF CARE (AMB) STL (07/09/2016) Only the most recent of3 resultswithin the time period is included. Clarity UA POCT clear Color UA POCT lucia Leukocyte UA negative Negative Nitrite UA POCT negative Negative Urobilinogen UA 1.0 0.1 - 1.0 Protein UA POCT negative Negative pH UA 6.5 5.0 - 8.0 pH units Blood UA negative Negtive Specific [place] UA POCT >=1.030 1.002 - 1.030 Ketone UA trace Negative Bilirubin UA POCT small Negative Glucose UA negative Negative Expiration Date 06/04/2017 Lot # [id number] QC Verified Yes Yes URINE / Unknown 07/09/2016 Rea Rajan MD LAB - POINT O F CARE ORDERABLES * DEONTE BLOOD SCREEN W/REFLEX TITER (07/02/2016 10:32 AM DEHYDRATOR) DEONTE Negative Negative [facility] ACCOUNT BILL Blood BLOOD SPECIMEN / Unknown 07/02/2016 10:32 AM DEHYDRATOR 07/02/2016 Narrative Resulting Agency Comment [facility] [address] [place] [address] [phone] Rea Rajan MD LAB - POLICY VALUE CALCULATOR RY ORDERABLES [facility] ACCOUNT BILL [address] [place] [address] * (ABNORMAL) CBC W AUTO DIFFERENTIAL (07/02/2016 10:32 AM DEHYDRATOR) Only the most recent of21 resultswithin the [...] BLOOD SPECIMEN / Unknown 07/02/2016 10:32 AM DEHYDRATOR 07/02/2016 Narrative Resulting Agency Comment [address] [phone] Rea Rajan MD LAB - HEMATOL OGY ORDERABLES [facility] ACCOUNT BILL [address] [place] [address] * FOLATE (07/02/2016 10:32 AM DEHYDRATOR) [facility] Folate 11.9 3.1 - 17.5 ng/mL [facility] ACCOUNT BILL Blood BLOOD SPECIMEN / Unknown 07/02/2016 10:32 AM DEHYDRATOR 07/02/2016 Narrative Resulting Agency Comment [address] [phone] Rea Rajan MD LAB - POLICY VALUE CALCULATOR RY ORDERABLES [facility] ACCOUNT BILL [address] [place] [address] * VITAMIN B12 (07/02/2016 10:32 AM DEHYDRATOR) Vitamin B12 373 211 - 911 pg/mL [facility] ACCOUNT BILL Blood BLOOD SPECIMEN / Unknown 07/02/2016 10:32 AM DEHYDRATOR 07/02/2016 Narrative Resulting Agency Comment [facility] [address] [facility] [phone] Rea Rajan MD LAB - POLICY VALUE CALCULATOR RY ORDERABLES Performing Organization Address City/[facility]/ZIP Co de Phone Number [facility] ACCOUNT BILL [address] [place] [address] * HYDROXYINDOLACETIC ACID URINE TIMED (06/27/2016 11:59 AM DEHYDRATOR) 5-HIAA 24 Hour Urine 2.4 Undefined mg/L [facility] ACCOUNT BILL 5-HIAA 24 Hour Urine 2.2 0.0 - 14.9 mg/24 hr [facility] ACCOUNT BILL Comment: This test was developed and its performance characteristics determined by [facility]. It has not been cleared or approved by the Food and Drug Administration. Urine TIMED URINE SPECIMEN / Unknown 06/27/2016 11:59 AM DEHYDRATOR 06/27/2016 Narrative Resulting Agency Comment [address] [phone] Rea Rajan MD LAB - URINE C HEMISTRY ORDERABLES Performing Organization Address City/[facility] Co de Phone Number [facility] ACCOUNT BILL [address] [place] [address] * METANEPHRINES URINE FRACTIONATED (06/27/2016 11:59 AM DEHYDRATOR) Normetanephrine 24 Hour Urine 287 Undefined ug/L [...] URINE SPECIMEN / Unknown 06/27/2016 11:59 AM DEHYDRATOR 06/27/2016 Narrative Resulting Agency Comment [facility] [address] [phone] Rea Rajan MD LAB - URINE C HEMISTRY ORDERABLES Performing Organization Address City/[facility] Co de Phone Number [facility] ACCOUNT BILL [address] [place] [address] * CBC W AUTO DIFFERENTIAL W PLATELETS (06/27/2016) BLOOD SPECIMEN / Unknown Rea Rajan MD LAB - HEMATOL OGY ORDERABLES * THYROID CASCADE PROFILE (PO REF LAB) (06/20/2016 10:12 AM DEHYDRATOR) Pathologist [facility] TSH 1.590 0.450 - 4.500 uIU/mL [facility] ACCOUNT BILL BLOOD SPECIMEN / Unknown 06/20/2016 10:12 AM DEHYDRATOR 06/20/2016 Narrative Resulting Agency Comment [facility] [address] [facility] [phone] Rea Rajan MD LAB - POLICY VALUE CALCULATOR RY ORDERABLES Performing Organization Address [facility] de Phone Number [facility] ACCOUNT BILL [address] [place] [address] * MONONUCLEOSIS SCREEN (06/20/2016 10:12 AM DEHYDRATOR) Only the most recent of2 resultswithin the time period is included. Mononucleosis Test Qualitative Negative Negative [facility] ACCOUNT BILL Comment: The sensitivity of Heterophile antibody testing is 80-90%. Nadine Ramirez IgM testing offers higher sensitivity. Blood BLOOD SPECIMEN / Unknown 06/20/2016 10:12 AM DEHYDRATOR 06/20/2016 Narrative Resulting Agency Comment [facility] [address] [facility] [phone] Rea Rajan MD LAB - POLICY VALUE CALCULATOR RY ORDERABLES Performing Organization Address City/[facility] Co de Phone Number [facility] ACCOUNT BILL [address] [place] [address] * LIPASE BLOOD (06/20/2016 10:12 AM DEHYDRATOR) Only the most recent of4 resultswithin the time period is included. Lipase 134 73 - 393 U/L [facility] ACCOUNT BILL Blood BLOOD SPECIMEN / Unknown 06/20/2016 10:12 AM DEHYDRATOR 06/20/2016 Narrative Resulting Agency Comment [facility] [address] [place] [address] [phone] Rea Rajan MD LAB - POLICY VALUE CALCULATOR RY ORDERABLES [facility] ACCOUNT BILL [address] [place] [address] * AMYLASE BLOOD (06/20/2016 10:12 AM DEHYDRATOR) Amylase 43 15 - 115 U/L [facility] ACCOUNT BILL Blood BLOOD SPECIMEN / Unknown 06/20/2016 10:12 AM DEHYDRATOR 06/20/2016 Narrative Resulting Agency Comment [facility] [address] [facility] [phone] Rea Rajan MD LAB - POLICY VALUE CALCULATOR RY ORDERABLES [facility] ACCOUNT BILL [address] [place] [address] * INFLUENZA A+B - POINT OF CARE [...] Strep A Internal Control Present Lot # [id number] Expiration Date 06/05/2016 Throat ENTIRE THROAT (SURFACE [...] pH units Blood UA negative Negtive Specific [place] UA POCT 1.020 1.002 - 1.030 Ketone [...] 6:03 PM CDT Narrative Resulting Agency Comment [facility] [phone] Luiaz Mullins MD LAB - CHEMISTRY [facility] INSURANCE BILL * PATHOLOGY PERIPHERAL [...] SMEAR WAS REVIEWED BY: DONA ESTRELLA M.D. [facility] [place] [address] CLIA ID NO. [id number] Test Performed at: [employer] [facility] [address] BERNADETTE GARCIA DO,MPH Blood specimen (specimen) BLOOD SPECIMEN / Unknown 09/07/2015 3:55 PM CDT 09/07/2015 3:56 PM CDT Rea Rajan MD LAB - PATHOLO GY/CYTOLOGY ORDERABLES Performing Organization Address [facility] [place] [address] * PT-INR (09/07/2015 3:55 PM CDT) [facility] INR 1.0 [facility] Comment: Reference Range 0.9-1.1 Moderate-intensity Warfarin Therapy 2.0-3.0 Higher-intensity Warfarin Therapy 3.0-4.0 PT 10.2 9.0 - 11.5 sec [facility] Comment: For more information on this test, go to: http://education.PromoteU/faq/NLM713 Test Performed at: [employer] [facility] [address] BERNADETTE GARCIA DO,MPH Blood specimen (specimen) BLOOD SPECIMEN / Unknown 09/07/2015 3:55 PM CDT 09/07/2015 3:56 PM CDT Rea Rajan MD LAB - COAGULA TION ORDERABLES Performing Organization Address [facility] Co de Phone Number [place] [phone] * LDH BLOOD (09/07/2015 3:55 PM CDT) [facility] LD-Total 171 100 - 220 U/L [facility] Comment: Test Performed at: [employer] [place] [address] BERNADETTE GARCIA DO,MPH Blood specimen (specimen) BLOOD SPECIMEN / Unknown 09/07/2015 3:55 PM CDT 09/07/2015 3:56 PM CDT Rea Rajan MD LAB - POLICY VALUE CALCULATOR RY ORDERABLES Performing Organization Address [facility] [place] [address] * HAPTOGLOBIN (09/07/2015 3:55 PM CDT) Haptoglobin 178 43 - 212 mg/dL [facility] Comment: REPORT COMMENT: FASTING:NO Test Performed at: [employer] [place] [address] BERNADETTE GARCIA DO,MPH Blood specimen (specimen) BLOOD SPECIMEN / Unknown 09/07/2015 3:55 PM CDT 09/07/2015 3:56 PM CDT Rea Rajan MD LAB - POLICY VALUE CALCULATOR RY ORDERABLES Performing Organization Address [facility] [place] [address] * (ABNORMAL) URINALYSIS ROUTINE W/REFLEX TO CULTURE (09/06/2015 12:00 PM CDT) Only the most recent of4 resultswithin the time period is included. Color UA Yellow Straw, Yellow, Dark Yellow 09/06/2015 12:12 PM CDT [facility] Clarity UA Clear 09/06/2015 12:12 PM CDT [facility] Specific [place] UA 1.002(L) 1.005 - 1.030 09/06/2015 12:12 PM CDT [facility] pH UA 6.0 5.0 - 8.0 pH 09/06/2015 12:12 PM CDT [facility] Protein UA Negative Negative 09/06/2015 12:12 PM CDT [facility] Blood UA Negative Negative 09/06/2015 12:12 PM CDT [facility] Leukocyte UA Negative Negative 09/06/2015 12:12 PM CDT [facility] Nitrite UA Negative Negative 09/06/2015 12:12 PM CDT [facility] Glucose UA Negative Negative 09/06/2015 12:12 PM CDT [facility] Ketone UA Negative Negative 09/06/2015 12:12 PM CDT [facility] Bilirubin UA Negative Negative 09/06/2015 12:12 PM CDT [facility] Urobilinogen UA 0.2 0.1 - 1.0 EU/dL 09/06/2015 12:12 PM CDT [facility] Reflex Status Culture not indicated 09/06/2015 12:12 PM CDT [facility] Urine URINE SPECIMEN OBTAINED BY CLEAN CATCH PROCEDURE / Unknown 09/06/2015 12:00 PM CDT 09/06/2015 12:09 PM CDT Anna HENRY LAB - URINALYSIS ORDERABLES [facility] [address] [id number] * NEURAXIAL BLOCK (08/01/2015 8:00 AM CDT) [...] Ultrasound Abdomen Limited Indication: Abdominal pain. Technique: Lehmna scale and color images of the abdomen [...] BARIUM ENEMA WATER SOLUBLE (07/11/2015 2:03 PM DEHYDRATOR) Anatomical Region Laterality Modality Abdomen Radiographic Cielo ging 07/11/2015 2:49 PM DEHYDRATOR Impressions 07/11/2015 2:59 PM DEHYDRATOR No additional diverticula are seen. Edited by Tomasa Thompson on 07/11/2015 2:52 PM Narrative 07/11/2015 2:59 PM DEHYDRATOR FLUOROSCOPIC LOWER GI SERIES HISTORY: Perforated diverticulitis, [...] (ABNORMAL) CULTURE ABSCESS+GRAM STAIN (05/02/2015 11:46 AM DEHYDRATOR) Pathologist [facility] Culture Rare growth Priya species not albicans(A) STACI 05/06/2015 9:27 AM [facility] MICRO[facility]OLOG[facility] Gram Stain No organisms seen 05/06/2015 9:27 AM [facility]CRO[facility] Microbiology ENTIRE PELVIS / Unknown Collection / Unknown 05/02/2015 11:46 AM DEHYDRATOR 05/02/2015 2:36 PM DEHYDRATOR Kevin Rosario MD LAB - MICROBIOLO GY ORDERABLES [facility] [address] [place] [address], [place] [phone] * PT PTT PANEL (05/02/2015 4:49 AM DEHYDRATOR) PT 11.6 9.5 - 11.6 sec 05/02/2015 5:29 AM [facility] INR 1.1 0.9 - 1.1 05/02/2015 5:29 AM DEHYDRATOR [facility] PTT 24.6 21.0 - 32.0 sec 05/02/2015 5:29 AM [facility] Blood BLOOD SPECIMEN / Unknown Lab Venipuncture / Unknown 05/02/2015 4:49 AM DEHYDRATOR 05/02/2015 5:14 AM DEHYDRATOR Narrative [facility] - 05/02/2015 5:29 AM DEHYDRATOR Conventional Warfarin Anticoagulant Therapy: INR Reference Range: 2.0-3.0 Intensive Warfarin Anticoagulant Therapy: INR Reference Range: 2.5-3.5 Heparin Therapeutic Range for PTT: 44.4 - 78.3 seconds. Kevin Rosario MD LAB - COAGULATIO N ORDERABLES [facility] [address] [id number] * CT DRAIN PERITON RETRO W CATH (04/29/2015 1:33 PM DEHYDRATOR) Only the most recent of2 resultswithin the time period is included. Anatomical Region Laterality Modality Computed Tomogra phy Impressions 04/30/2015 10:[address]-guided transgluteal abscess drain insertion. Narrative 04/30/2015 10:[address] GUIDED transgluteal abscess drain insertion Supervision [...] tract was dilated to accommodate an 8 Divehi drain. The pigtail was formed and locked and secured to the skin with nonabsorbable suture. The samples were sent for Gram stain and culture. The patient tolerated the procedure well and was transferred to routine post procedure monitoring in stable condition. Hermelindo Ding MD CT ORDERABLES * CULTURE WOUND+GRAM STAIN (04/29/2015 1:08 PM DEHYDRATOR) Only the most recent of2 resultswithin the time period is included. Culture No Growth STACI 05/02/2015 5:59 AM [facility]CRO[facility] Gram Stain No organisms seen 05/02/2015 5:59 AM [facility]CRO[facility]OLOG[facility] Gram Stain Moderate White blood cells 05/02/2015 5:59 AM [facility]CRO[facility] Microbiology SPECIMEN FROM ABSCESS / Unknown Collection / Unknown 04/29/2015 1:08 PM DEHYDRATOR 04/29/2015 1:45 PM DEHYDRATOR Hermelindo Ding MD LAB - MICROBIOLOGY O RDERABLES Performing Organization Address City/[facility] Co de Phone Number [facility] [address] [place] [address], [place] [phone] * CLOSTRIDIUM DIFFICILE GDH AG + TOXIN A+B (04/29/2015 9:38 AM DEHYDRATOR) [facility] Antigen Negative Negative, Invalid 04/29/2015 8:02 PM [facility]CRO[facility] C difficile Toxin A + B Negative Negative, Invalid 04/29/2015 8:02 PM [facility] Interpretation C difficile Negative for toxigenic C. difficile Negative for toxigenic C. difficile 04/29/2015 8:02 PM [facility] Stool STOOL SPECIMEN / Unknown Collection / Unknown 04/29/2015 9:38 AM DEHYDRATOR 04/29/2015 10:34 AM DEHYDRATOR Merline Jane MD LAB - MICROBIOLOGY ORDERABLES Performing Organization Address [facility]/ZIP Co de Phone Number [facility] [address] [place] [address], [place] [phone] * EKG 12-LEAD (04/28/2015 8:26 AM DEHYDRATOR) Ventricular Rate 107 BPM [facility] MUSE Atrial Rate 107 BPM [facility] MUSE P-R Interval 128 ms [facility] MUSE QRS Duration ms 96 ms [facility] M[facility] Q-T Interval ms 336 ms [facility] MUSE QTC Calculation (Bezet) 448 ms [facility] MUSE Calculated P [place] 43 degrees [facility] MUSE Calculated R [place] 12 degrees [facility] MUSE Calculated T [place] 4 degrees [facility] MUSE Interpretation EKG Sinus tachycardia Possible Left atrial enlargement Borderline ECG When compared with ECG of 28-APR-2015 08:25, No significant change was found Confirmed by MD BRIAN, YUDI Scott ([id number]) on 04/29/2015 7:39:32 AM [facility] MUSE 04/28/2015 8:26 AM DEHYDRATOR 04/29/2015 7:39 AM [facility] Kieran Gonzalez MD ECG ORDERABLES [facility] MUSE * (ABNORMAL) URINALYSIS ROUTINE AUTO (04/27/2015 11:01 PM DEHYDRATOR) Color UA Larue(A) Straw, Yellow, Dark Yellow 04/27/2015 11:45 PM [facility] Clarity UA Clear 04/27/2015 11:45 PM [facility] Specific [place] UA >1.030(H) 1.005 - 1.030 04/27/2015 11:45 PM [facility] pH UA 6.0 5.0 - 8.0 pH 04/27/2015 11:45 PM [facility] Protein UA 1+(A) Negative 04/27/2015 11:45 PM [facility] Blood UA Negative Negative 04/27/2015 11:45 PM [facility] Leukocyte UA 1+(A) Negative 04/27/2015 11:45 PM [facility] Nitrite UA Positive(A) Negative 04/27/2015 11:45 PM [facility] Glucose UA Negative Negative 04/27/2015 11:45 PM [facility] Ketone UA 3+(A) Negative 04/27/2015 11:45 PM [facility] Bilirubin UA 1+(A) Negative 04/27/2015 11:45 PM [facility] Urobilinogen UA 0.2 0.1 - 1.0 EU/dL 04/27/2015 11:45 PM [facility] WBC UA Auto 0-2 0-2, 2-5 # /hpf 04/27/2015 11:45 PM [facility] RBC UA Auto 2-5 0-2, 2-5 # /hpf 04/27/2015 11:45 PM [facility] Epithelial Cell UA Auto 0-2 0-2, 2-5 # /hpf 04/27/2015 11:45 PM [facility] Urine URINE SPECIMEN OBTAINED BY CLEAN CATCH PROCEDURE / Unknown 04/27/2015 11:01 PM DEHYDRATOR 04/27/2015 11:34 PM DEHYDRATOR Kevin Rosario MD LAB - URINALYSIS ORDERABLES [facility] [address] [place] [address] * (ABNORMAL) DIFFERENTIAL MANUAL (04/26/2015 5:12 AM [facility]) WBC Auto 15.5 x10^9/L 04/26/2015 9:26 AM [facility] WBC Corrected 4.4 - 10.7 x10^9/L 04/26/2015 9:26 AM [facility] nRBC /100 WBC 04/26/2015 9:26 AM [facility] Neutrophil % Manual 77(H) 44 - 73 % 04/26/2015 9:26 AM [facility] Lymphocytes % Manual 5(L) 20 - 43 % 04/26/2015 9:26 AM [facility] Monocytes % Manual 5 5 - 13 % 04/26/2015 9:26 AM [facility] Band % Manual 13(H) 0 - 11 % 04/26/2015 9:26 AM [facility] Cells Counted 100 # cells 04/26/2015 9:26 AM [facility] WBC Morph Normal 04/26/2015 9:26 AM [facility] Anisocytosis 1+(A) None 04/26/2015 9:26 AM [facility] Polychromasia 1+(A) None 04/26/2015 9:26 AM [facility] Platelet Estimation Normal 04/26/2015 9:26 AM [facility] Blood BLOOD SPECIMEN / Unknown Lab Venipuncture / Unknown 04/26/2015 5:12 AM DEHYDRATOR 04/26/2015 5:31 AM DEHYDRATOR Kevin Rosario MD LAB - HEMATOLOGY ORDERABLES [facility] [address] [place] [address] * CULTURE BLOOD (04/24/2015 6:09 PM DEHYDRATOR) Only the most recent of2 resultswithin the time period is included. Culture No Growth Day 5 STACI 04/29/2015 10:00 PM DEHYDRATOR [facility] Blood PERIPHERAL BLOOD / Unknown Venipuncture / Unknown 04/24/2015 6:09 PM DEHYDRATOR 04/24/2015 6:13 PM DEHYDRATOR Moses Remy DO LAB - MICROBIOL OGY ORDERABLES [facility] [address] [place], [place] [address] [phone] Care Teams Hospital Admissions Clerk Relationship Specialty Start Date End Date Montrell Garcia MD [address] [place] [phone] PCP - General Family Medicine 08/18/20 Jose Juan Thornton MD [address] [place] [address] [address] [place] [address] Neurology 08/08/16 Jose Read MD [address] [place] [address] [address] [place] [address] Rheumatology 09/19/16
== END 2024-07-15 16:37 | disposition home or self-care (01) ==
PROVIDERS: Emergency Provider Physician Assistant; PCP Family Medicine
DX: S05.02XA Injury of conjunctiva and corneal abrasion without foreign body, left eye, initial encounter (principal); Z90.49 Acquired absence of other specified parts of digestive tract; Z77.22 Contact with and (suspected) exposure to environmental tobacco smoke (acute) (chronic); X58.XXXA Exposure to other specified factors, initial encounter
CPT/HCPCS: 99283